=== PATIENT | female | born 1950 | race Two or more races ===

== ENCOUNTER → 2024-08-17 | Outpatient (CLI) | payer OTHER, MEDICAID, SELFPAY ==
--- NOTE | 2024-08-17 09:30 | XR_ITS ---
Examination: MRI abdomen with intravenous contrast. MRI abdomen without intravenous contrast. Date and time of exam: August 17, 2024 1013 hours Comparison 04/18/2024 INDICATIONS: Diagnosis renal cell cancer, right nephrectomy November 2022 restaging Technique: Multiple axial, sagittal and coronal sections of the abdomen obtained. Transverse images, TR 6020, TE 107. T1 weighted transverse images, TR 582, TE 9.5. T2-weighted sagittal images, TR 4000, TE 105. T2-weighted sagittal images, TR 4000, TE 5. Coronal images, TR 4210, TE 107. Axial and coronal images are obtained post 5 cc intravenous injection, gadolinium. Findings: No enhancing liver lesion Spleen is not enlarged Absent right kidney Stable small left adrenal nodule No enhancing liver splenic or left renal lesion No enhancing recurrent soft tissue tumor in the right renal fossa No interval lymphadenopathy No ascites IMPRESSION: Study is limited by the patient's size Absent right kidney No interval metastatic disease noted
== END | disposition home or self-care (01) ==
PROVIDERS: PCP Physician Assistant; Referring Provider Internal Medicine Hematology & Oncology; Visit Provider Internal Medicine Hematology & Oncology
DX: C64.1 Malignant neoplasm of right kidney, except renal pelvis (principal); Z90.5 Acquired absence of kidney
CPT/HCPCS: 74183; A9579

== ENCOUNTER 2024-12-28 15:20 | Outpatient (RCR) | payer OTHER, MEDICAID, SELFPAY ==
--- NOTE | 2024-12-29 09:48 | CTCFLWUP_ITS ---
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 The patient presents for follow-up of their cancer treatment and management of associated health conditions. The patient's renal cancer was diagnosed in 2022, with a T3 tumor that was completely removed during a right nephrectomy. Lymph nodes were negative at the time of surgery. A stable 14 millimeter renal nodule was noted in March 2024, and the patient was last seen by Dr. Velásquez in the same month. No immunotherapy has been administered. The patient is scheduled for a Marianela test, a genetic blood test to detect early cancer recurrence. Since the last visit, the patient's blood pressure has been rising, with recent readings of 138/85, 142/88, and 143/93, the highest recorded recently. The patient's weight increased to 347 pounds but has since decreased to 307 pounds with the use of Mounjaro, which has been helpful for weight loss, diabetes management, and blood pressure control. The patient reports retaining water. The patient is currently taking diltiazem for heart issues. They are being cared for by their son, who serves as the primary caregiver among five children. The patient's primary care provider is a nurse practitioner, Dr. Jay. Medications and Supplements - Asparlas - Diltiazem - For heart issues - Mounjaro - Helps with weight loss, diabetes, and blood pressure - Patient's weight decreased from 347 pounds to 307 pounds Review of Systems General: Positive for weight gain, water retention. Cardiovascular: Positive for elevated blood pressure. Objective: Vital Signs - Blood Pressure: 143/93 mmHg - Weight: 307 pounds Laboratory, Imaging, and Diagnostic Test Results - CT scan (March 2024): Stable 14 millimeter renal nodule - Previous results: - Pathology (2022): Clear cell renal cell cancer of the right kidney, lymph nodes negative, tumor stage T3 ONCOLOGY HISTORY: DIAGNOSIS: PT3a, pN0, clear-cell renal cell carcinoma of the right kidney. Status post right nephrectomy (12/19/2022) 14 mm left intrarenal nodule (MRI 12/11/2023), stable (MRI 04/18/2024) Obesity Type 2 diabetes REASON FOR TODAY?S VISIT: This is office follow-up visit. Ms. Lay is here at [facility] accompanied by her son. Ms. Lay is clinically doing well. Denies any new complaints. Denies any cough, chest pain, abdominal pain or leg cramps. Recently she had repeat MRI of the abdomen which showed stable left adrenal nodule as documented below. DATE OF DIAGNOSIS: STAGE/TNM: TREATMENT HISTORY: Care?Plan Start?Date Cycle Day Intent HISTORY OF PRESENT ILLNESS: With following oncology history. 12/19/2022: Ms. Lay had robotic right radical nephrectomy, robotic right radical adrenalectomy. 08/31/2023: CT scan of the chest and abdomen with IV contrast 11/09/2023: PET/CT scan done 12/11/2023: MRI of the abdomen with and without contrast? 01/11/2024: CT of the abdomen without contrast for possible biopsy 04/18/2024: MRI of the abdomen with and without contrast OTHER MEDICAL HISTORY/CONDITIONS: Right kidney clear cell cancer - 12/19/22 Diabetes HTN Asthma Arthritis Obesity T and A - age 12 Left oophorectomy Tubal ligation Bilateral cataract surgery Right radical nephrectomy - 12/19/22 FAMILY HISTORY: Cancer History:?Denies family history cancer Patient?denies?family?cancer?history. 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 Tobacco?Use:?Denies ETOH?Use:?Socailly?-?rarely Drug?Note:?Denies Social?History?Note:?Lives?with?sons GM VIDEO HISTORY: Menarche?-?Age:?13 Menopause:?Age?50's :?7 Live?Births:?5 Age?1st?:?19 Gynecological?Note:?2?miscarriages MEDICATIONS: 1. atorvastatin - 20 mg 1 tab Daily 2. benzonatate - 100 mg 1 Capsule Three times a day 3. cyclobenzaprine - 5 mg 2 tab Daily 4. dilTIAZem HCl - 60 mg 1 tab Twice a Day 5. ferrous sulfate - 325 mg (65 mg iron) 1 tab As directed 6. ekpya-[id number]-1-glo-nxc-icnqgb - 614-26-37-50 mg 1 Capsule Daily 7. Linzess - 290 mcg 1 Capsule Daily 8. losartan - 25 mg 1 tab Daily 9. meloxicam - 15 mg 1 tab Daily 10. montelukast - 10 mg 1 tab Daily 11. Mounjaro - 2.5 mg/0.5 mL 1 Weekly 12. omeprazole - 20 mg 1 Daily 13. Trelegy Ellipta - 100-62.5-25 mcg Daily 14. Vitamin D2 - 1,250 mcg (50,000 unit) 1 Capsule As directed Medications Last Reconciled by Kaycee Gay MA on 12/28/2024 ALLERGIES: Penicillins REVIEW OF SYSTEMS: A complete 14-point review of systems was performed and is negative except as noted in interval history. PHYSICAL EXAMINATION: VITAL SIGNS: Temperature?98.2, B/P?172/91, Oxygen?Saturation?98% Weight?307?lbs PAIN: 0 - No pain ECOG Performance Status: 0 - Asymptomatic and fully active GENERAL APPEARANCE: Appears well, in no apparent distress, appropriately interactive. HEENT: Normocephalic, no temporal wasting, normal conjunctiva, no scleral icterus, normal hearing, lips without lesions, neck normal range of motion. CARDIOVASCULAR: Not assessed. PULMONARY: Normal respiratory effort, no respiratory distress or use of accessory muscles, speaking in full sentences, no tachypnea. EXTREMITIES: No pedal edema or cyanosis. SKIN: Normal skin appearance. NEUROLOGIC: Alert and oriented x4. PSHYCHIATRIC: Appropriate affect, mood normal, behavior normal, intact thought and speech. LABORATORY DATA: I have personally reviewed and interpreted each of the patient?s relevant lab tests, abnormal findings are below: Date 08/31/23 04/18/24 ??WHITE?BLOOD?COUNT?(Thou/mm3) 8.5 7.7 ??RED?BLOOD?COUNT?(Miln/mm3) 4.07 4.09 ??HEMOGLOBIN?(gm/dl) 9.9?L 11.8?L ??HEMATOCRIT?(%) 34.6?L 38.8 ??PLATELET?COUNT?(Thou/mm3) 411 335 ??NEUTROPHILS?%,?AUTO?(%) 66 66 ??LYMPH?%,?AUTO?(%) 20 23 ??NEUTROPHILS,?AUTO?(Thou/mm3) 5.6 5.1 ??GLUCOSE,RANDOM?(mg/dL) 94 99 ??BLOOD?UREA?NITROGEN?(mg/dL) 19 17 ??CREATININE?(mg/dL) 1.10 1.00 ??SODIUM?(mmol/L) 141 140 ??POTASSIUM?(mmol/L) 4.4 4.3 ??CHLORIDE?(mmol/L) 108?H 110?H ??CrCl?(CandG)?(ml/min) 68.05 71.20 ??AST/SGOT?(Unit/L) 14 12 ??ALT/SGPT?(Unit/L) 9?L <?7?L ??ALKALINE?PHOSPHATASE?(Unit/L) 139?H 101 ??BILIRUBIN,?TOTAL?(mg/dL) 0.3 0.3 ??PROTEIN?TOTAL?(gm/dl) 7.3 7.0 ??ALBUMIN,?SERUM?(gm/dl) 4.3 4.0 ??GLOBULIN?(gm/dl) 3.0 3.0 ??ALBUMIN/GLOBULIN?RATIO 1.4 1.3 ??CALCIUM,?SERUM?(mg/dL) 10.4 10.0 ??CALCIUM?SERUM?(CORRECTED)?(mg/dL) 10.4?H 10.0 ASSESSMENT/PLAN: Assessment and Plan: Cyndie Tineo, status post right kidney nephrectomy for clear cell renal cell carcinoma in 2022, presenting for follow-up with stable renal nodule and rising blood pressure. 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 Pathology showed T3 tumor with negative lymph nodes, indicating all cancer was removed. No immunotherapy was administered. Follow-up imaging in March 2024 revealed a stable 14 mm renal nodule. Patient was last seen by Dr. Velásquez in March 2024. Given the stable nature of the nodule and negative lymph nodes at time of surgery, current risk of recurrence appears low. Plan: - Order Marianela test (genetic blood test) for early detection of cancer recurrence - Continue surveillance for potential metastases, particularly to brain and lungs - Monitor stable growth on adrenal glands, currently assessed as unlikely to be cancerous - Educate patient on kidney cancer metastasis patterns and importance of follow-up Stable left adrenal noduLe on MRI of the abdomen done on 04/18/2024. left adrenal nodule was not biopsied due to significant lung between the mass in the posterior chest abdominal wall. MRI of the abdomen (12/11/2023) showed a 14 mm left adrenal nodule as documented above suspicious for adrenal metastasis. History of right kidney clear-cell renal cell carcinoma, status post robotic right nephro Hypertension Assessment: Patient's blood pressure has been rising, with recent readings of 138/85, 142/88, and 143/93. The most recent reading is the highest recorded. Current goal is to achieve blood pressure control of 130/80, especially important given the patient's history of nephrectomy. Patient is currently on diltiazem for cardiac issues, which may not be optimal for blood pressure management. Plan: - Recommend transition from diltiazem to losartan for better blood pressure control - Advise patient to avoid salty foods and increase water intake - Refer patient to an MD (instead of current nurse practitioner) for improved blood pressure management - Monitor blood pressure closely at follow-up visits Obesity Assessment: Patient's weight increased to 347 pounds but has since decreased to 307 pounds with the use of Mounjaro. The medication is helping with weight loss, diabetes management, and blood pressure control. Patient is retaining water, which may be contributing to weight fluctuations. Plan: - Continue Mounjaro for weight management, diabetes control, and blood pressure regulation - Monitor weight at follow-up visits - Assess for fluid retention and consider interventions if persistent ORDERS: Order # Description [id number] Comprehensive Metabolic Panel - 12 + CBC with Auto Diff [id number] MD Follow Up 2 Months RETURN TO CLINIC: BILLING AND COMPLIANCE: I reviewed external records from providers outside my specialty as summarized above. I spent a total of 50 minutes on this patient?s care on the day of their visit excluding time spent related to any billed procedures. This time includes time spent with the patient as well as time spent documenting in the medical record, reviewing patients records and tests, obtaining history, placing orders, communicating with other healthcare professionals, counseling the patient, family or caregiver, and/or care coordination for the diagnoses above. Electronically Signed by: Ignacio Newberry MD T: 9:45 AM CC: PCP: Alexy Suh Referring: Alexy Suh This document was completed utilizing speech recognition software. Grammatical errors, random word insertions, pronoun errors, and incomplete sentences are an occasional consequence of this system due to software limitations, ambient noise, and hardware issues. Any formal questions or concerns about the content, text or information contained within the body of this dictation should be directly addressed to the provider for clarification.
== END 2025-01-23 23:59 | disposition home or self-care (01) ==
LOC: SCTC 15:20
PROVIDERS: PCP Physician Assistant; Referring Provider Physician Assistant; Visit Provider Internal Medicine Hematology & Oncology
DX: C64.1 Malignant neoplasm of right kidney, except renal pelvis (principal); Z90.5 Acquired absence of kidney; E27.8 Other specified disorders of adrenal gland; I10 Essential (primary) hypertension; E66.9 Obesity, unspecified; Z68.43 Body mass index [BMI] 50.0-59.9, adult
CPT/HCPCS: 99212; G0463

== ENCOUNTER 2025-02-14 16:23 | Emergency (ER) | payer OTHER, MEDICAID, SELFPAY ==
[2025-02-14 16:25] VITALS: BMI 54.3
[2025-02-14 17:01] VITALS: BP 145/81; PULSE 73; RESP 18; TEMP 36.7; O2SAT 95
--- NOTE | 2025-02-14 17:05 | XR_ITS ---
Examination: CT abdomen and pelvis without contrast. Coronal 3-D reconstructions. Sagittal 2-D reconstructions. Date and time of exam:February 14, 2025 1733 hours COMPARISON: PET CT scan November 09, 2023 INDICATIONS: Left flank pain beginning 6 days ago, history renal cell carcinoma posttreatment, CTDI: vol (mGy): 24 DLP: (mGycm): 1608 Technique: Axial images of the abdomen have been obtained, 3 mm slice thickness Intravenous contrast material has not been administered. Low dose protocols were performed. One or more of the following dose reduction techniques were used; automated exposure control, adjustment of the mA and/or KV according to patient size, use of iterative reconstruction technique. Findings: Focal liver or splenic lesion Absent gallbladder No pancreatic mass Stable 21 mm left adrenal nodule No left hydronephrosis renal or ureteral calculi Absent right kidney Normal appendix 6 cm umbilical hernia chest which contains partly incarcerated fat No bowel obstruction Atrophic uterus No bladder mass IMPRESSION: Stable 21 mm left adrenal nodule No left hydronephrosis or renal calculi or ureteral calculi Absent right kidney No findings of metastatic disease
--- NOTE | 2025-02-14 17:06 | PD.EDRME ---
Rapid Medical Screening Exam RME Arrival date/time: 02/14/25 16:23 74-year-old female presents emergency department for complaint of generalized abdominal pain Chief Complaint: Back Pain/Injury Vital signs: Vital Signs Temperature 98.0 F 02/14/25 17:01 Pulse Rate 73 02/14/25 17:01 Respiratory Rate 18 02/14/25 17:01 Blood Pressure 145/81 H 02/14/25 17:01 Pulse Oximetry (%) 95 02/14/25 17:01 Oxygen Delivery Method Room Air 02/14/25 17:01
[2025-02-14 17:33] LABS: Basophils # (Auto) 0.0 Thou/mm3 (0.0-0.2); Basophils % (Auto) 0 % (0-2.5); Eosinophils # (Auto) 0.2 Thou/mm3 (0.0-0.5); Eosinophils % (Auto) 3 % (0-10); Hematocrit 34.8 % (36.0-46.0); Hemoglobin 10.4 g/dL (12.0-16.0); Immature Granulocytes Auto 0.02 Thou/mm3 (0.00-0.00); Lymphocytes # (Auto) 1.7 Thou/mm3 (1.0-4.8); Lymphocytes % (Auto) 19 % (10-50); Mean Corpuscular HGB Conc 29.9 g/dl (31.0-37.0); Mean Corpuscular Hemoglobin 23.6 pg (25.0-35.0); Mean Corpuscular Volume 79 fL (80-100); Monocytes # (Auto) 0.7 Thou/mm3 (0.0-0.8); Monocytes % (Auto) 8 % (0-12); Neutrophils # (Auto) 6.5 Thou/mm3 (1.8-7.7); Neutrophils % (Auto) 71 % (37-80); Nucleated Red Blood Cell # 0.00 Thou/mm3 (0.00-0.00); Nucleated Red Blood Cell % 0 /100 WBC (0); Platelet Count 342 Thou/mm3 (140-440); RDW Standard Deviation 54.5 fL (36.4-46.3); Red Blood Count 4.40 Miln/mm3 (4.00-5.20); White Blood Count 9.2 Thou/mm3 (3.6-11.0)
[2025-02-14 18:13] LABS: Alanine Aminotransferase < 7 U/L (10-49); Albumin, Serum 4.1 gm/dL (3.4-4.8); Albumin/Globulin Ratio 1.2 (1.2-2.2); Alkaline Phosphatase 154 U/L (46-116); Anion Gap 9 (7-16); Aspartate Amino Transferase 12 U/L (0-34); BUN/Creatinine Ratio 13 Ratio (12-20); Bilirubin,Total 0.4 mg/dL (0.3-1.2); Blood Urea Nitrogen 16 mg/dL (9-23); Calcium 10.1 mg/dL (8.3-10.6); Calcium (Corrected) 10.1 mg/dL (8.5-10.1); Carbon Dioxide 26.7 mMol/L (20.0-31.0); Chloride 106 mMol/L (98-107); Creatinine (Component) 1.2 mg/dL (0.6-1.3); Estimated Creatinine Clearance 56.6 mL/min (>60); Globulin 3.4 gm/dL (2.3-3.5); Glucose 92 mg/dL (74-106); Lipase 22 U/L (12-53); Osmolality,Calculated 284 (275-295); Potassium 4.8 mMol/L (3.4-5.1); Sodium 142 mMol/L (136-145); Total Protein 7.5 gm/dL (5.7-8.2); eGFR 48 See Note
[2025-02-14 19:28] LABS: Collection Type, Urine Clean Catch
[2025-02-14 19:41] LABS: Bacteria,Urine Rare; Bilirubin,Urine Negative (Negative); Blood,Urine Negative (Negative); Clarity,Urine Clear (Clear/Hazy); Color,Urine Colorless (Lt Yel-Yel); Culture Indicated,Urine Not Indicated; Glucose, Urine 3+ (Negative); Ketones,Urine Negative (Negative); Leukocyte Esterase,Urine Negative (Negative); Nitrite,Urine Negative (Negative); PH,Urine 6.5 (5.0-7.0); Protein,Urine Negative (Neg - Trace); RBC,Urine 2 /hpf (0-3); Specific Gravity,Urine 1.011 (1.001-1.035); Squamous Epithelial Cell,Urine 2 /hpf (0-5); Urobilinogen,Urine Negative mg/dL (0.0-1.0); WBC,Urine 1 /hpf (0-5)
--- NOTE | 2025-02-14 21:39 | PD.EDABDPN ---
ED Abdominal Pain RME/HPI General Chief Complaint: Back Pain/Injury Stated complaint: SIDE PAIN AND BACK PAIN X6 DAYS Time seen by provider: 02/14/25 21:16 Arrival date/time: 02/14/25 16:23 74-year-old female is here today with her son. She has a 6-day history of abdominal pain and bilateral flank pain. She has no nausea, vomiting, or diarrhea. She has no dysuria. She denies any fevers. She states she has a history of asthma, hypertension, and diabetes. She has a remote history of renal cell carcinoma and had a nephrectomy in 2022. She has also had a prior cholecystectomy. Source: patient and family Limitations: no limitations RME / HPI RME / HPI narrative: 02/14/25 16:23 74-year-old female presents emergency department for complaint of generalized abdominal pain Related Data Home Medications ?Medication ?Instructions ?Recorded ?Confirmed albuterol sulfate 2.5 mg/3 mL 2.5 mg inhalation Q4H PRN Cough 09/04/22 01/11/24 (0.083 %) solution for nebulization diltiazem HCl 60 mg 60 mg PO BID 09/04/22 01/11/24 capsule,extended release 12 hr meloxicam 15 mg tablet 15 mg PO QDAY 09/04/22 01/11/24 metformin 850 mg tablet 850 mg PO BID 09/04/22 01/11/24 montelukast 10 mg tablet 10 mg PO QDAY 09/04/22 01/11/24 budesonide 0.5 mg/2 mL suspension 0.25 mg inhalation BID 09/19/22 03/16/23 for nebulization krill oil 500 mg capsule 350 mg PO QDAY 09/19/22 01/11/24 benzonatate 100 mg capsule 100 mg PO 3XD 01/11/24 01/11/24 ferrous sulfate 325 mg (65 mg 325 mg PO QDAY 01/11/24 01/11/24 iron) tablet furosemide 20 mg tablet 20 mg PO DAILY 01/11/24 01/11/24 linaclotide 290 mcg capsule 290 mcg PO DAILY 01/11/24 01/11/24 (Linzess) Previous Rx's ?Medication ?Instructions ?Recorded diphenhydramine HCl 25 mg capsule 25 mg PO Q8H PRN allergic symptoms 05/22/23 (Benadryl) #30 caps dicyclomine 20 mg tablet 20 mg PO QID PRN abdominal pain 02/14/25 #14 tabs Allergies Allergy/AdvReac Type Severity Reaction Status Date / Time Penicillins Allergy Severe RASH Verified 02/14/25 16:25 cat dander Allergy Verified 02/14/25 16:25 dog dander Allergy Verified 02/14/25 16:25 pollen extracts Allergy Verified 02/14/25 16:25 Review of Systems Review of Systems Systems Reviewed: All systems reviewed, normal except as documented ED Exam General Limitations: Present no limitations General appearance: Present alert and in no apparent distress Head Head exam: Present atraumatic Eye Eye exam: Present normal appearance, PERRL and EOMI ENT ENT exam: Present normal exam, normal oropharynx and mucous membranes moist Neck Neck exam: Present normal inspection, full ROM and trachea midline Chest Chest inspection: Present normal inspection and symmetric chest wall rise Respiratory Respiratory exam: Present normal lung sounds bilaterally Cardiovascular Cardiovascular exam: Present regular rate, normal rhythm and normal heart sounds Abdominal Exam Abdominal exam: Present soft and normal bowel sounds; Absent distention, tenderness, guarding, rebound or rigidity Extremities Exam Extremities exam: Present normal inspection and full ROM Back Exam Back exam: Present normal inspection and full ROM Neurological Exam Neurological exam: Present alert, oriented X3 and other Psychiatric Psychiatric exam: Present normal affect and normal mood Skin Skin exam: Present warm, dry, intact and normal color Course Quality Measures none Orders Category Date Time Status CT abdomen pelvis wo con Stat Exams 02/14/25 17:05 Completed CBC Stat Lab 02/14/25 17:19 Completed Comprehensive Metabolic Panel Stat Lab 02/14/25 17:19 Completed Lipase Stat Lab 02/14/25 17:19 Completed UA, C/S IF [Urinalysis, C/S if Indicated] Stat Lab 02/14/25 19:18 Completed Vital Signs Vital signs: Vital Signs Temperature 98.0 F 02/14/25 17:01 Pulse Rate 73 02/14/25 17:01 Respiratory Rate 18 02/14/25 17:01 Blood Pressure 145/81 H 02/14/25 17:01 Pulse Oximetry (%) 95 02/14/25 17:01 Oxygen Delivery Method Room Air 02/14/25 17:01 Abdominal Pain MDM MDM Narrative MDM Narrative:: 02/14/25 16:23 74-year-old female is here today with her son. She has a 6-day history of abdominal pain and bilateral flank pain. She has no nausea, vomiting, or diarrhea. She has no dysuria. She denies any fevers. She states she has a history of asthma, hypertension, and diabetes. She has a remote history of renal cell carcinoma and had a nephrectomy in 2022. She has also had a prior cholecystectomy. The history was initially difficult to obtain. After I had introduced myself, the patient send began yelling at me asking me what was wrong . He verbalized discontent with the triage process indicating that had been in the waiting room for quite some time and he had seen people have gotten here after us and were seen before us . This situation was de-escalated and I was able to obtain a history and physical. At one point during our interview, nursing staff stated they needed the wheelchair the patient was using for an emergent case in the waiting room and brought in a chair for the patient to sit down on. Patient and her son verbalized discontent with this and initially declined to provide the wheelchair. They later agreed to transfer into the chair that was set next to her. Her abdomen is soft, there is no appreciated masses, guarding, or tenderness. She has no CVA tenderness. Patient's workup revealed no leukocytosis. She has an anemia with a hemoglobin 10.4 and hematocrit 34.8. Her metabolic panel was unremarkable exception of a elevated alk phos at 154. CT revealed no acute intra-abdominal or pelvic abnormality. Findings discussed with Dr. Miller. No further emergent workup is warranted at this time. Patient will be discharged with a prescription of Bentyl. She agrees to use Tylenol for comfort. She will follow-up with her primary clinic. Return here at anytime for any worsening or emergent changes. Patient data External records reviewed:: None Clinical information provided by:: patient and family Social determinants that could affect healthcare access:: none Patient has the following chronic illnesses:: Asthma, hypertension, diabetes How is presenting disease/condition affected by chronic disease/condition?: uneffected by Evaluation data The following diagnostics were reviewed and interpreted by me:: lab results (No leukocytosis or metabolic derangement) and radiology exam(s) (No acute intra-abdominal or pelvic abnormality) Lab and/or radiology exams considered but not ordered:: n/a Interpretation Summary: Mild anemia Medications / Prescriptions Medications or Prescriptions considered but not ordered:: n/a Medication administrations:: n/a Consultations Consultation(s) initiated? (list below): No Diagnosis Differential diagnosis abdominal pain: abdominal pain, constipation, gastroenteritis and small bowel obstruction Most likely diagnosis given after review of the tests above:: Abdominal cramping Admission Indicated Admission indicated?: not indicated Admission Request Was there a request for admission?: No Disposition Plan Disposition Plan: Discharge Discharge Attestation Discharge Attestation: The patient and all family members were given an opportunity to ask questions and understood the discharge instructions. Discharge instructions specifically effects, indications for sooner follow up or return to the emergency department, and the expected course of current diagnosis. Patient condition: Stable Discharge Plan Plan Patient Disposition: HOME (Self Care) Patient condition on transfer: Stable Prescriptions/Referrals Prescriptions/Med Rec: New dicyclomine 20 mg tablet 20 mg PO QID PRN (Reason: abdominal pain) Qty: 14 0RF No Action meloxicam 15 mg tablet 15 mg PO QDAY metformin 850 mg tablet 850 mg PO BID montelukast 10 mg tablet 10 mg PO QDAY diltiazem HCl 60 mg capsule,extended release 12 hr 60 mg PO BID albuterol sulfate 2.5 mg /3 mL (0.083 %) solution for nebulization 2.5 mg inhalation Q4H PRN (Reason: Cough) budesonide 0.5 mg/2 mL Suspension For Nebulization 0.25 mg INHALATION BID krill oil 500 mg Capsule 350 mg PO QDAY diphenhydramine HCl [Benadryl] 25 mg capsule 25 mg PO Q8H PRN (Reason: allergic symptoms) Qty: 30 0RF benzonatate 100 mg Capsule 100 mg PO 3XD ferrous sulfate 325 mg (65 mg iron) Tablet 325 mg PO QDAY furosemide 20 mg Tablet 20 mg PO DAILY Linzess 290 mcg Capsule 290 mcg PO DAILY Referrals: Amanda Turner MD [Primary Care Provider] - In 1 week Problem List Clinical Impression: Abdominal pain Patient/Caregiver Discharge Instructions Education Materials: Abdominal Pain Additional Instructions: - Continue taking her Tylenol as needed. - You will be prescribed a prescription of Bentyl to also help with your pain. - Please follow-up with your primary doctor within the next 1 to 2 weeks. - Return to the emergency room at anytime for any worsening or emergent changes. Print Language: Moroccan Stand Alone Forms: [employer] Patient Portal Info Letter
[2025-02-14 21:51] VITALS: BP 145/62; PULSE 18; RESP 19; TEMP 37.1; O2SAT 99
== END 2025-02-14 21:53 | disposition home or self-care (01) ==
PROVIDERS: Nurse Practitioner Primary Care; Emergency Provider Emergency Medicine; PCP Internal Medicine
DX: R10.9 Unspecified abdominal pain (principal); E27.8 Other specified disorders of adrenal gland; Z90.49 Acquired absence of other specified parts of digestive tract
CPT/HCPCS: 36415; 74176; 80053; 81001; 83690; 85025; 99283

== ENCOUNTER 2025-02-16 07:37 | Outpatient (RCR) | payer OTHER, MEDICAID, SELFPAY | END 2025-02-23 23:59 | disposition home or self-care (01) | LOC: SCTC 07:37 | PROVIDERS: PCP Internal Medicine; Referring Provider Physician Assistant; Visit Provider Internal Medicine Hematology & Oncology | DX: Z85.528 Personal history of other malignant neoplasm of kidney (principal); Z90.5 Acquired absence of kidney; I10 Essential (primary) hypertension; E66.9 Obesity, unspecified; Z68.44 Body mass index [BMI] 60.0-69.9, adult; E27.8 Other specified disorders of adrenal gland | CPT/HCPCS: 36415 ==

== ENCOUNTER 2025-02-28 14:53 | Outpatient (RCR) | payer OTHER, MEDICAID, SELFPAY ==
--- NOTE | 2025-03-06 02:19 | CTCFLWUP_ITS ---
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 The patient presents for follow-up of their cancer treatment and management of associated health conditions. The patient's renal cancer was diagnosed in 2022, with a T3 tumor that was completely removed during a right nephrectomy. Lymph nodes were negative at the time of surgery. A stable 14 millimeter renal nodule was noted in March 2024, and the patient was last seen by Dr. Velásquez in the same month. No immunotherapy has been administered. The patient is scheduled for a Marianela test, a genetic blood test to detect early cancer recurrence. Since the last visit, the patient's blood pressure has been rising, with recent readings of 138/85, 142/88, and 143/93, the highest recorded recently. The patient's weight increased to 347 pounds but has since decreased to 307 pounds with the use of Mounjaro, which has been helpful for weight loss, diabetes management, and blood pressure control. The patient reports retaining water. The patient is currently taking diltiazem for heart issues. They are being cared for by their son, who serves as the primary caregiver among five children. The patient's primary care provider is a nurse practitioner, Dr. Jay. Medications and Supplements - Asparlas - Diltiazem - For heart issues - Mounjaro - Helps with weight loss, diabetes, and blood pressure - Patient's weight decreased from 347 pounds to 307 pounds Review of Systems General: Positive for weight gain, water retention. Cardiovascular: Positive for elevated blood pressure. Objective: Vital Signs - Blood Pressure: 143/93 mmHg - Weight: 307 pounds Laboratory, Imaging, and Diagnostic Test Results - CT scan (March 2024): Stable 14 millimeter renal nodule - Previous results: - Pathology (2022): Clear cell renal cell cancer of the right kidney, lymph nodes negative, tumor stage T3 ONCOLOGY HISTORY:?[facility] Hx? DIAGNOSIS: PT3a, pN0, clear-cell renal cell carcinoma of the right kidney. Status post right nephrectomy (12/19/2022) 14 mm left intrarenal nodule (MRI 12/11/2023), stable (MRI 04/18/2024) Obesity Type 2 diabetes REASON FOR TODAY?S VISIT: This is office follow-up visit. Ms. Lay is here at [facility] accompanied by her son. Ms. Lay is clinically doing well. Denies any new complaints. Denies any cough, chest pain, abdominal pain or leg cramps. Recently she had repeat MRI of the abdomen which showed stable left adrenal nodule as documented below. DATE OF DIAGNOSIS: STAGE/TNM: TREATMENT HISTORY: Care?Plan Start?Date Cycle Day Intent HISTORY OF PRESENT ILLNESS: With following oncology history. 12/19/2022: Ms. Lay had robotic right radical nephrectomy, robotic right radical adrenalectomy. 08/31/2023: CT scan of the chest and abdomen with IV contrast 11/09/2023: PET/CT scan done 12/11/2023: MRI of the abdomen with and without contrast? 01/11/2024: CT of the abdomen without contrast for possible biopsy 04/18/2024: MRI of the abdomen with and without contrast OTHER MEDICAL HISTORY/CONDITIONS: Right kidney clear cell cancer - 12/19/22 Diabetes HTN Asthma Arthritis Obesity T and A - age 12 Left oophorectomy Tubal ligation Bilateral cataract surgery Right radical nephrectomy - 12/19/22 FAMILY HISTORY: Cancer History:?Denies family history cancer Patient?denies?family?cancer?history. 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 Tobacco?Use:?Denies ETOH?Use:?Socailly?-?rarely Drug?Note:?Denies Social?History?Note:?Lives?with?sons [employer] HISTORY: Menarche?-?Age:?13 Menopause:?Age?50's :?7 Live?Births:?5 Age?1st?:?19 Gynecological?Note:?2?miscarriages MEDICATIONS: 1. atorvastatin - 20 mg 1 tab Daily 2. benzonatate - 100 mg 1 Capsule Three times a day 3. cyclobenzaprine - 5 mg 2 tab Daily 4. dilTIAZem HCl - 60 mg 1 tab Twice a Day 5. ferrous sulfate - 325 mg (65 mg iron) 1 tab As directed 6. tekgo-[id number]-rzi-tyferd - 419-82-81-50 mg 1 Capsule Daily 7. Linzess - 290 mcg 1 Capsule Daily 8. losartan - 25 mg 1 tab Daily 9. meloxicam - 15 mg 1 tab Daily 10. montelukast - 10 mg 1 tab Daily 11. Mounjaro - 2.5 mg/0.5 mL 1 Weekly 12. omeprazole - 20 mg 1 Daily 13. Trelegy Ellipta - 100-62.5-25 mcg Daily 14. Vitamin D2 - 1,250 mcg (50,000 unit) 1 Capsule As directed?Pal[facility]ra Meds? Medications Last Reconciled by Tayler Patino MD on 02/28/2025 ALLERGIES: Penicillins REVIEW OF SYSTEMS: A complete 14-point review of systems was performed and is negative except as noted in interval history. PHYSICAL EXAMINATION:?[facility] PE? VITAL SIGNS: Temperature?98, B/P?151/82, Oxygen?Saturation?93% PAIN: 2 - Mild pain GENERAL APPEARANCE: Appears well, in no apparent distress, appropriately interactive. HEENT: Normocephalic, no temporal wasting, normal conjunctiva, no scleral icterus, normal hearing, lips without lesions, neck normal range of motion. CARDIOVASCULAR: Not assessed. PULMONARY: Normal respiratory effort, no respiratory distress or use of accessory muscles, speaking in full sentences, no tachypnea. EXTREMITIES: No pedal edema or cyanosis. SKIN: Normal skin appearance. NEUROLOGIC: Alert and oriented x4. PSHYCHIATRIC: Appropriate affect, mood normal, behavior normal, intact thought and speech. LABORATORY DATA: I have personally reviewed and interpreted each of the patient?s relevant lab tests, abnormal findings are below: Date 04/18/24 02/14/25 ??WHITE?BLOOD?COUNT?(Thou/mm3) 7.7 9.2 ??RED?BLOOD?COUNT?(Miln/mm3) 4.09 4.40 ??HEMOGLOBIN?(gm/dl) 11.8?L 10.4?L ??HEMATOCRIT?(%) 38.8 34.8?L ??PLATELET?COUNT?(Thou/mm3) 335 342 ??NEUTROPHILS?%,?AUTO?(%) 66 71 ??LYMPH?%,?AUTO?(%) 23 19 ??NEUTROPHILS,?AUTO?(Thou/mm3) 5.1 6.5 ??GLUCOSE,RANDOM?(mg/dL) 99 92 ??BLOOD?UREA?NITROGEN?(mg/dL) 17 16 ??CREATININE?(mg/dL) 1.00 1.20 ??SODIUM?(mmol/L) 140 142 ??POTASSIUM?(mmol/L) 4.3 4.8 ??CHLORIDE?(mmol/L) 110?H 106 ??CrCl?(CandG)?(ml/min) 71.20 57.24 ??AST/SGOT?(Unit/L) 12 12 ??ALT/SGPT?(Unit/L) <?7?L <?7?L ??ALKALINE?PHOSPHATASE?(Unit/L) 101 154?H ??BILIRUBIN,?TOTAL?(mg/dL) 0.3 0.4 ??PROTEIN?TOTAL?(gm/dl) 7.0 7.5 ??ALBUMIN,?SERUM?(gm/dl) 4.0 4.1 ??GLOBULIN?(gm/dl) 3.0 3.4 ??ALBUMIN/GLOBULIN?RATIO 1.3 1.2 ??CALCIUM,?SERUM?(mg/dL) 10.0 10.1 ??CALCIUM?SERUM?(CORRECTED)?(mg/dL) 10.0 10.1 ASSESSMENT/PLAN:?Sharmila Newberry Assessment/Plan? Assessment and Plan: Cyndie Tineo, status post right kidney nephrectomy for clear cell renal cell carcinoma in 2022, presenting for follow-up with stable renal nodule and rising blood pressure. 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 Pathology showed T3 tumor with negative lymph nodes, indicating all cancer was removed. No immunotherapy was administered. Follow-up imaging in March 2024 revealed a stable 14 mm renal nodule. Patient was last seen by Dr. Velásquez in March 2024. Given the stable nature of the nodule and negative lymph nodes at time of surgery, current risk of recurrence appears low. Plan: - Order Marianela test (genetic blood test) for early detection of cancer recurrence - Continue surveillance for potential metastases, particularly to brain and lungs - Monitor stable growth on adrenal glands, currently assessed as unlikely to be cancerous - Educate patient on kidney cancer metastasis patterns and importance of follow-up Stable left adrenal noduLe on MRI of the abdomen done on 04/18/2024. left adrenal nodule was not biopsied due to significant lung between the mass in the posterior chest abdominal wall. MRI of the abdomen (12/11/2023) showed a 14 mm left adrenal nodule as documented above suspicious for adrenal metastasis. History of right kidney clear-cell renal cell carcinoma, status post robotic right nephro Hypertension Assessment: Patient's blood pressure has been rising, with recent readings of 138/85, 142/88, and 143/93. The most recent reading is the highest recorded. Current goal is to achieve blood pressure control of 130/80, especially important given the patient's history of nephrectomy. Patient is currently on diltiazem for cardiac issues, which may not be optimal for blood pressure management. Plan: - Recommend transition from diltiazem to losartan for better blood pressure control - Advise patient to avoid salty foods and increase water intake - Refer patient to an MD (instead of current nurse practitioner) for improved blood pressure management - Monitor blood pressure closely at follow-up visits Obesity Assessment: Patient's weight increased to 347 pounds but has since decreased to 307 pounds with the use of Mounjaro. The medication is helping with weight loss, diabetes management, and blood pressure control. Patient is retaining water, which may be contributing to weight fluctuations. Plan: - Continue Mounjaro for weight management, diabetes control, and blood pressure regulation - Monitor weight at follow-up visits - Assess for fluid retention and consider interventions if persistent Anemia Will do nutritional workup ORDERS: Order # Description [id number] Comprehensive Metabolic Panel - 12 + CBC with Auto Diff [id number] MD Follow Up 2 Months [id number] Iron Panel + Ferritin + Vitamin B-12 + Folic Acid; Serum RETURN TO CLINIC: I reviewed the diagnosis, prognosis, and recommended treatment/procedure options with the patient (and/or their legal in store representative), including the potential benefits, risks, side effects and alternative therapies. We also discussed the option of no treatment and the possibility of clinical trial participation, if applicable. All questions were addressed, and they demonstrated understanding. They provided informed consent to proceed with the proposed plan of care. BILLING AND COMPLIANCE: I reviewed external records from providers outside my specialty as summarized above. I spent a total of 50 minutes on this patient?s care on the day of their visit excluding time spent related to any billed procedures. This time includes time spent with the patient as well as time spent documenting in the medical record, reviewing patients records and tests, obtaining history, placing orders, communicating with other healthcare professionals, counseling the patient, family or caregiver, and/or care coordination for the diagnoses above. Electronically Signed by: Ignacio Newberry MD T: 2:17 AM CC: PCP: Amanda Turner Referring: Amanda Turner This document was completed utilizing speech recognition software. Grammatical errors, random word insertions, pronoun errors, and incomplete sentences are an occasional consequence of this system due to software limitations, ambient noise, and hardware issues. Any formal questions or concerns about the content, text or information contained within the body of this dictation should be directly addressed to the provider for clarification.
== END 2025-03-26 23:59 | disposition home or self-care (01) ==
LOC: SCTC 14:53
PROVIDERS: PCP Internal Medicine; Referring Provider Internal Medicine; Visit Provider Internal Medicine Hematology & Oncology
DX: C64.1 Malignant neoplasm of right kidney, except renal pelvis (principal); Z90.5 Acquired absence of kidney; I10 Essential (primary) hypertension; E66.9 Obesity, unspecified; D64.9 Anemia, unspecified; E11.9 Type 2 diabetes mellitus without complications; Z79.85 Long-term (current) use of injectable non-insulin antidiabetic drugs
CPT/HCPCS: 99212; G0463

== ENCOUNTER 2025-03-20 14:10 | Outpatient (AMB) | payer OTHER, MEDICAID, SELFPAY ==
--- NOTE | 2025-03-20 14:27 | PD.RESCLINIC ---
Vital Signs 03/20/25 14:28 Height 1.6 m Height Method Stated Weight 155.129 kg Weight Measurement Method Standing Scale BMI 60.5 BP 111/74 Blood Pressure Source Automatic Cuff Blood Pressure Location Left Upper Arm Position Sitting Respiration 16 Pulse 83 Pulse Source Monitor Temp 97.8 F Temp Source Oral Pulse Oximetry (%) 83 L Oxygen Delivery Method Room Air Allergies/Meds Allergies & Medications Allergies Penicillins Allergy (Severe, Verified 03/20/25 14:28) RASH cat dander Allergy (Verified 03/20/25 14:28) dog dander Allergy (Verified 03/20/25 14:28) pollen extracts Allergy (Verified 03/20/25 14:28) Medication Reconciliation albuterol sulfate 2.5 mg/3 mL (0.083 %) solution for nebulization 2.5 mg inhalation Q4H PRN Cough 09/04/22 [History Confirmed 03/20/25] diltiazem HCl 60 mg capsule,extended release 12 hr 60 mg PO BID 09/04/22 [History Confirmed 03/20/25] metformin 850 mg tablet 850 mg PO BID 09/04/22 [History Confirmed 03/20/25] montelukast 10 mg tablet 10 mg PO QDAY 09/04/22 [History Confirmed 03/20/25] budesonide 0.5 mg/2 mL suspension for nebulization 0.25 mg inhalation BID 09/19/22 [History Confirmed 03/20/25] krill oil 500 mg capsule 350 mg PO QDAY 09/19/22 [History Confirmed 03/20/25] diphenhydramine HCl 25 mg capsule (Benadryl) 25 mg PO Q8H PRN allergic symptoms #30 caps 12/15/22 [Rx Confirmed 03/20/25] linaclotide 290 mcg capsule (Linzess) 290 mcg PO DAILY 01/11/24 [History Confirmed 03/20/25] dicyclomine 20 mg tablet 20 mg PO QID PRN abdominal pain #14 tabs 02/14/25 [Rx Confirmed 03/20/25] atorvastatin 20 mg tablet 20 mg PO QHS 03/20/25 [History] benzonatate 100 mg capsule 100 mg PO TID PRN cough 1 month #90 caps 03/20/25 [Rx] blood pressure kit-extra large #1 ea 03/20/25 [Rx] dapagliflozin propanediol 10 mg tablet (Farxiga) 10 mg PO QDAY 03/20/25 [History] furosemide 20 mg tablet 20 mg PO Q OTHER DAY 03/20/25 [History Confirmed 03/20/25] gabapentin 100 mg capsule 100 mg PO BID 1 month #60 caps 03/20/25 [Rx] omeprazole 20 mg capsule,delayed release 20 mg PO QDAY 03/20/25 [History] omeprazole magnesium 20 mg tablet,delayed release (Prilosec OTC) 20 mg PO QDAY 1 month #30 tabs 03/20/25 [Rx] tirzepatide 2.5 mg/0.5 mL subcutaneous pen injector (Mounjaro) 7.5 mg subcut QWEEK 03/20/25 [History] tirzepatide 7.5 mg/0.5 mL subcutaneous pen injector (Mounjaro) 7.5 mg (0.5 mL) subcut QWEEK 1 month #2 mL 03/20/25 [Rx] MA Intake Visit Data Collection New Patient or Established: Established Patient (seen at [facility] within 3 years) Seen by Clinical Staff ONLY (RN/MA): No Reason for Visit:: ESTABLISH CARE Pain Present Currently: No Pain scale:: 0 Pain Scale Used: She[employer]on[employer] Required: No PCP or OBGYN visit in last 3 months: Yes Hx Now: No Do You Feel Safe at Home: Yes Authorities Contacted: N/A Smoking Status Smoking Status: Never smoker Immunization / Flu Flu Vaccine in the Last 12 Months: Yes Flu Vaccine Exclusion Criteria: No Exclusion Criteria Past Medical History Past Medical History NEUROLOGIC: Negative Neurological Disorders, Cerebrovascular Accident, Transient Ischemic Attacks (TIA), Dementia, Alzheimer's Disease, Parkinson's Disease, Brain Tumor, Meningitis, Seizures, Epilepsy, Multiple Sclerosis, Cerebral Palsy, Amyotrophic Lateral Sclerosis (ALS/Kinsey Gehrig's), Guillain-Mansfield Syndrome, Spina Bifida, Paralysis, Peripheral Neuropathy, Pope's Palsy, Subdural Hematoma, Migraine, Head Trauma, Spinal Cord Injury or Traumatic Brain Injury CARDIAC: Positive Cardiac Disorders, Hypertension and Varicose Veins; Negative Myocardial Infarction, Cardiac Arrhythmia, Atrial Fibrillation, Angina, Heart Murmur, Coronary Artery Disease, Atherosclerotic Heart Disease, Peripheral Vascular Disease, Hypercholesterolemia, Aneurysm, Congestive Heart Failure, Congenital Heart Disease, Valvular Heart Disease, Rheumatic Fever, Cardiomyopathy, Edema, Pericarditis, Cellulitis, Deep Vein Thrombosis or Hypotension RESPIRATORY: Positive Asthma, Bronchitis and Sleep Apnea; Negative Chronic Obstructive Pulmonary Disease (COPD), Emphysema, Pneumonia, Pulmonary Fibrosis, Cystic Fibrosis, Tuberculosis, Pulmonary Embolism or Pulmonary Edema GASTROINTESTINAL: Positive Gastrointestinal Disorders, Gall Bladder Disease, Diverticulosis, Hemorrhoids and Obesity; Negative Hepatitis, Cirrhosis, Pancreatitis, Celiac Disease, Gastrointestinal Bleed, Esophageal Varices, Stauffer's Esophagus, Colitis, Ulcerative Colitis, Diverticulitis, Ulcer, Colorectal Cancer, Irritable Bowel, Crohn's Disease, Obstructive Bowel, Hiatal Hernia or Gastroesophageal Reflux Disease GENITOURINARY: Negative Genitourinary Disorders, Renal Disease, Kidney Stones, Polycystic Kidney Disease, Neurogenic Bladder, Inguinal Hernia, Dialysis, Prostate Cancer or Benign Prostatic Hyperplasia REPRODUCTIVE: Positive Previous Pregnancies (x5); Negative Breast Cancer, Endometriosis, Genital Herpes, Gonorrhea, Pelvic Inflammatory Disease, Syphilis, Testicular Cancer or Uterine Prolapse MUSCULOSKELETAL: Positive Arthritis; Negative Muscular Dystrophy, Myasthenia Gravis, Marfan's Syndrome, Bone Cancer, Rheumatoid Arthritis, Osteoporosis, Degenerative Disk Disease, Gout, Scoliosis, Carpal Tunnel Syndrome, Fibromyalgia, Fractures, Degenerative Joint Disease, Osteomyelitis or Poliovirus ENT: Positive Cataracts; Negative Glaucoma, Blind, Retinal Detachment, Macular Degeneration, Ear Infection, Deafness, Head Trauma or Eye Prosthesis ENDOCRINE: Positive Endocrine Disorders and Diabetes Mellitus Type 2; Negative Diabetes Mellitus Type 1, Hypoglycemia, [place]'s Syndrome, Jason's Disease, Hyperthyroidism, Hypothyroidism, Parathyroid Disease, Pituitary Disease, Systemic Lupus Erythematosus, Syndrome of Inappropriate Antidiuretic Hormone (SIADH), Adrenal Disease or Graves' Disease HEMATOLOGIC: Negative Blood Disorders, Anemia, Leukemia, Hemophilia, Thalassemia, Sickle Cell Disease or Clotting Problems PSYCHO/SOCIAL: Negative Psychiatric Problems, Schizophrenia, Recreational Drug Use, Bipolar Disorder, Depression, Anxiety, Behavior Problems, Self-Mutilation, Attention Deficit Disorder, Attention Deficit Hyperactivity Disorder, Depression, Post Traumatic Stress Disorder or Eating Disorder OTHER HISTORY: Positive Chicken Pox, Measles and Mumps; Negative Hospitalization, Down Syndrome, Autism, Developmental Delay, Shingles, Falls, Blood Transfusions, Blood Transfusion Reaction, Anesthesia Reactions, Organ Transplant, Chemotherapy, Radiation Therapy, Hyperbaric Therapy, MRSA, VRSA, Vancomycin-Resistant Enterococci, Human Immunodeficiency Virus (HIV), Rubella ([place] Measles), Pertussis, Clostridium Difficile, Cancer, Breast Cancer, Cervical Cancer, Colorectal Cancer, Lung Cancer, Ovarian Cancer, Prostate Cancer or Testicular Cancer Family History FAMILY HISTORY: Positive Family Cardiac Disorders and Family Surgery; Negative Family Psychiatric Problems, Family Respiratory Disorders, Family Gastrointestinal Problems, Family Cancer or Family Anesthesia Reaction Surgical History SURGICAL: Positive Eye Surgery, Tonsillectomy, Abdominal Surgery, Nephrectomy (right nephrectomy 11/29/2022) and Tubal Ligation; Negative Cardiac Surgery, Open Heart Surgery, Coronary Artery Bypass Graft, Valve Replacement, Vascular Surgery, Coronary Stent, Cardiac Catheterization, Pacemaker, Angiogram, Auto Implanted Cardiovert Defib, Carotid Endarterectomy, Endocrine Surgery, Thyroidectomy, Ear Surgery, Tympanostomy Tube, Nose Surgery, Oral Surgery, Adenoidectomy, Cochlear Implant, Corneal Transplant, Throat Surgery, Tracheostomy, Gastric Bypass Surgery, Gastrostomy, Bowel Surgery, Transurethral Resection, Joint Replacement, Amputation, Open Reduction Internal Fixation, Arthroscopy, Neurologic Surgery, Brain Shunt, Mastectomy, Lumpectomy, Hysterectomy, Section, Vasectomy or Organ Transplant Social History SMOKING STATUS: Smoking status: Never smoker SECOND HAND EXPOSURE: second hand exposure: No ALCOHOL: Alcohol Intake: Never HOUSING: Housing: [facility] Patient Portal Questionaires PHQ-9 PHQ-2 Over the last 2 weeks, how often have you been bothered by any of the following problems? 1. Little interest or pleasure in doing things: not at all 2. Feeling down, depressed, or hopeless: not at all Total score: 0 PHQ-9 3. Trouble falling or staying asleep, or sleeping too much: Not at all 4. Feeling tired or having little energy: Not at all 5. Poor appetite or overeating: Not at all 6. Feeling bad about yourself - or that you are a failure or have let yourself or your family down: Not at all 7. Trouble concentrating on things, such as reading the newspaper or watching television: Not at all 8. Moving or speaking so slowly that other people could have noticed? - Or the opposite - being so fidgety or restless that you have been moving around a lot more than usual: not at all 9. Thoughts that you would be better off or of hurting yourself in some way: Not at all Total score: 0 Source: Developed by Drs. Сергей Fishman, Dulce Guillen, Lam Moyer and colleagues, with an educational sanjuanita from [employer]. Depression screen completed yes Social History Living Situation History Lives With: Family Housing: House Tobacco History Smoking Status: Never smoker Second Hand Smoke Exposure: No Alcohol History Alcohol Intake: Never Domestic Abuse History Do You Feel Safe at Home: Yes Review of Systems Report any current symptoms Only answer those that you have currently: Past Medical History Past Medical History Have you ever been diagnosed with any of the following: Neurological Problems Cerebrovascular Accident (CVA): No Transient Ischemic Attacks (TIA): No Dementia: No Alzheimer's Disease: No Parkinson's Disease: No Brain Tumor: No Meningitis: No Seizures: No Epilepsy: No Multiple Sclerosis: No Cerebral Palsy: No Amyotrophic Lateral Sclerosis (ALS/Kinsey Gehrig's): No Guillain-Mansfield Syndrome: No Spina Bifida: No Paralysis: No Peripheral Neuropathy: No Pope's Palsy: No Subdural Hematoma: No Migraine: No Head Trauma: No Spinal Cord Injury: No Traumatic Brain Injury: No Cardiology Problems Myocardial Infarction: No Cardiac Arrhythmia: No Atrial Fibrillation: No Angina: No Heart Murmur: No Coronary Artery Disease: No Atherosclerotic Heart Disease: No Peripheral Vascular Disease: No Hypercholesterolemia: No Aneurysm: No Congestive Heart Failure: No Congenital Heart Disease: No Valvular Heart Disease: No Rheumatic Fever: No Cardiomyopathy: No Edema: No Pericarditis: No Cellulitis: No Deep Vein Thrombosis: No Hypertension: Yes Hypotension: No Varicose Veins: Yes Respiratory Problems Chronic Obstructive Pulmonary Disease (COPD): No Asthma: Yes Bronchitis: Yes Emphysema: No Pneumonia: No Pulmonary Fibrosis: No Tuberculosis: No Pulmonary Embolism: No Pulmonary Edema: No Sleep Apnea: Yes Stomache/Intestinal Problems Hepatitis: No Cirrhosis: No Pancreatitis: No Celiac Disease: No Gall Bladder Disease: Yes Gastrointestinal Bleed: No Esophageal Varices: No Stauffer's Esophagus: No Colitis: No Ulcerative Colitis: No Diverticulitis: No Diverticulosis: Yes Ulcer: No Colorectal Cancer: No Irritable Bowel: No Crohn's Disease: No Obstructive Bowel: No Hiatal Hernia: No Hemorrhoids: Yes Gastroesophageal Reflux Disease: No Obesity: Yes Genital/Urinary Problems Renal Disease: No Kidney Stones: No Polycystic Kidney Disease: No Neurogenic Bladder: No Inguinal Hernia: No Dialysis: No Reproductive Problems Breast Cancer: No Endometriosis: No Genital Herpes: No Gonorrhea: No Pelvic Inflammatory Disease: No Previous Pregnancies: Yes (x5) Syphilis: No Uterine Prolapse: No Musculoskeletal Problems Muscular Dystrophy: No Myasthenia Gravis: No Marfan's Syndrome: No Bone Cancer: No Arthritis: Yes Rheumatoid Arthritis: No Osteoporosis: No Degenerative Disk Disease: No Gout: No Scoliosis: No Carpal Tunnel Syndrome: No Fibromyalgia: No Fractures: No Degenerative Joint Disease: No Osteomyelitis: No Poliovirus: No Head,Eye,Nose,Throat Problems Cataracts: Yes Glaucoma: No Blind: No Retinal Detachment: No Macular Degeneration: No Chronic Ear Infections: No Deafness: No Eye Prosthesis: No Endocrine Problems Diabetes Mellitus Type 1: No Diabetes Mellitus Type 2: Yes Hypoglycemia: No [place]'s Syndrome: No Jason's Disease: No Hyperthyroidism: No Hypothyroidism: No Parathyroid Disease: No Pituitary Disease: No Systemic Lupus Erythematosus: No Syndrome of Inappropriate Antidiuretic Hormone: No Adrenal Disease: No Graves' Disease: No Blood Problems Anemia: No Leukemia: No Hemophilia: No Thalassemia: No Sickle Cell Disease: No Clotting Problems: No Psychologic Problems Schizophrenia: No Recreational Drug Use: No Bipolar Disorder: No Depression: No Anxiety: No Behavior Problems: No Self-Mutilation: No Attention Deficit Disorder: No Attention Deficit Hyperactivity Disorder: No Depression: No Post Traumatic Stress Disorder: No Eating Disorder: No Other Problems Hospitalization: No Down Syndrome: No Autism: No Developmental Delay: No Shingles: No Falls: No Blood Transfusions: No Blood Transfusion Reaction: No Anesthesia Reactions: No Organ Transplant: No Chemotherapy: No Radiation Therapy: No Hyperbaric Therapy: No MRSA: No VRSA: No Vancomycin-Resistant Enterococci: No Human Immunodeficiency Virus (HIV): No Chicken Pox: Yes Measles: Yes Mumps: Yes Rubella ([place] Measles): No Pertussis: No Clostridium Difficile: No Cancer: No Cervical Cancer: No Lung Cancer: No Ovarian Cancer: No Surgical History Carotid Endarterectomy: No Coronary Artery Bypass Graft: No Valve Replacement: No Hysterectomy: No Pacemaker: No Thyroidectomy: No History of Present Illness HPI Narrative Patient is a 74 year old female with past medical history of clear cell renal carcinoma s/p right nephrectomy, hypertension, diabetes, asthma, and morbid obesity who presents to clinic today for blood pressure control. Currently on furosemide 20 mg every other day, losartan 25 mg daily, diltiazem 60 mg ER BID (prescribed by previous CONSTRUCTION PRODUCER), and Farxiga 10 mg daily. BP in office 111/74 today. Oxygen saturation 83% on intake, repeat 92-93% on RA on exam. Hx of asthma, uses Trelegy, uses 2L oxygen nightly, does not need during the day. Reports daytime tiredness however does not want to be referred for sleep study at this time. Reports unable to sleep at night, educated on proper sleep hygiene and encouraged to try melatonin OTC. Patient is currently on Monjaro 5mg, started 1 month ago. Has not lost any weight. Encouraged exercise as tolerated. Patient has trouble walking due to right side sciatica versus meralgia parasthesia, started on gabapentin 100 mg BID. Uses walker but requested wheelchair for gait dysfunction secondary to pain. Will increase Mounjaro from 5 to 7.5mg per patient request. Denies nausea, vomiting, and constipation (Linzess daily). Denies history of tobacco, alcohol, and drug use. Review of Systems Review of Systems Narrative Review of Systems: Review of Systems General: Denies fevers or chills HEENT: Denies congestion or sore throat Heart: Denies chest pain or palpitations Lungs: Denies shortness of breath or cough Abdomen: Denies diarrhea, nausea, vomiting, constipation, bright red blood per rectum or melena Genitourinary: Denies frequency, urgency, dysuria, or hematuria Musculoskeletal: Denies joint pain or myalgias Neurology: Intermittent paresthesia and pain of right lateral thigh. Denies any changes in vision, weakness or difficulty speaking Review of systems otherwise negative except what is mentioned above. Objective/Exam Narrative Physical exam: Physical Exam General: Elderly, morbidly obese female, pleasant. Wheelchair bound. Awake and in no acute distress. Conversational and non-toxic appearing. HEENT: Normocephalic, atraumatic, mucous membranes moist. Heart: Regular rate and rhythm, normal S1 and S2, no murmurs. Lungs: Clear to auscultation with no wheezing or crackles. Abdomen: Soft, nondistended, nontender, positive bowel sounds. No guarding or rebound tenderness. Neurologic: Alert and oriented x3, no gross neurological deficit, and patient able to move all 4 extremities. Negative Slump test. Extremities: No lower extremity edema bilaterally. Skin: No rash or ecchymoses. Assessment & Plan Diagnosis / Problem List (1) Hypertension: Status: Acute Qualifiers: Hypertension type: primary hypertension Qualified Code(s): I10 - Essential (primary) hypertension Assessment & Plan: Reason for referral from oncologist Dr. Newberry. Previously managed by CONSTRUCTION PRODUCER Misty, was prescribed diltiazem 60 mg ER BID. Denies history of arrhythmias or cardiac disease. Per patient, also taking Losartan 25 mg daily, furosemide 20 mg every other day, and Farxiga 10mg daily. Discontinued from Kerendia. BP in office today 111/74. Denies UTI symptoms, no lower extremity edema on exam. Of note, patient has history of clear renal cell carcinoma s/p right nephrectomy, possibly exacerbated by history of CKD stage 3a, follows oncologist Dr. Newberry and field support rep Dr. Turner. Has appointment with Dr. Newberry 03/[address] Turner 05/2025. Plan: - Continue Losartan, Lasix every other day, Farxiga, and diltiazem as above - Follow up BNP - Ordered BP cuff, instructed patient to measure and log BP every morning - Instructed patient to bring medications to next appointment (2) Non-insulin dependent diabetes mellitus: Status: Acute Assessment & Plan: Currently on Mounjaro 5mg qweek, prescribed by Dr. Turner. First A1c on record 6.0 on 08/20/23, latest 5.6 on 01/31/25. Reports no weight loss. Will increase dosage. Per review of records, patient was previously on metformin, did not mention today as current medication. Plan: - Increase Mounjaro from 5 to 7.5 mg qweek - Instructed patient to bring medications to next visit (3) Leg paresthesia: Status: Acute Assessment & Plan: Complaining of sharp intermittent right lateral thigh pain, occasionally radiating to right hip. Denies pain in hamstrings. Negative Slump test on exam. Impedes patient's ability to walk, currently using walker but unable to ambulate far due to pain. Has handicap placard. Takes extra strength Tylenol for arthritis. Previously taken meloxicam, was discontinued. Plan: - Prescribed gabapentin 100 mg BID for pain - Recommend taking extra strength Tylenol prior to ambulation/activity - Ordered wheelchair per patient request (4) Neurologic gait dysfunction: Status: Acute Assessment & Plan: Pain impeding ambulation as above. Plan: - DME wheelchair request as above (5) GERD (gastroesophageal reflux disease): Status: Acute Qualifiers: Esophagitis presence: without esophagitis Qualified Code(s): K21.9 - Gastro-esophageal reflux disease without esophagitis Assessment & Plan: History of GERD per patient, likely secondary to morbid obesity and poor eating habits. Plan: - Continue omeprazole 20 mg daily - Educated on proper meal time and post dinner habits (6) Hyperlipidemia: Status: Acute Qualifiers: Hyperlipidemia type: unspecified Qualified Code(s): E78.5 - Hyperlipidemia, unspecified Assessment & Plan: Lipid panel 01/31/25: total cholesterol 119, TG 113, HDL 43, LDL 55, VLDL 21. Plan: - Continue atorvastatin 20 mg QHS - Follow up lipid panel annually Orders: Orders B-Type Natriuretic Peptide Today Kelli Rahman, STUDENT RE Referrals DME Services Kelli Rahman, STUDENT RE R26.9 - Unspecified abnormalities of gait and mobility Additional Assessment #Hx clear renal cell carcinoma s/p right nephrectomy - following oncologist Dr. Newberry. On Asparlos per last note 03/06/25. Note stable 14mm adrenal nodule since 03/2024 on MRI. Marianela genetic test negative. #CKD stage 3a - As above. Cr 1.08 and eGFR 54 on 01/31/25, at baseline. Urine albumin/Cr ratio 12. UA shows 2+ glucose but otherwise unremarkable. Following Dr. Turner, on . #Secondary hyperparathyroidism - likely secondary to above. PTH 66, calcium 10.0. Continue to monitor. #Mild anemia, normocytic - Hgb 10.3, MCV 82 on 01/31/25. Likely secondary to CKD. Patient no longer taking iron. Consider iron panel if continues to drop. Advanced Care Planning Advance care planning discussed with:: patient Office Procedures [facility] Level of Care Nursing/Assessment Patient Status: Established Patient Nursing Assessment/Reassessment: Medication Reconciliation, Update PMH in EMR and Vital Signs Coordination of Care: Complex Care and Chronic Disease 1-5, Consent,records obtained, informed consent, Education Simp Pt/Fam, 1 Ins Authorization, Lab and Imaging orders, Results/Orders obtained and Staff clarify orders Established Patient Charge Established Patient Point Assignment: 120 Established Patient Point Charge: Level 4 (120-155)
[2025-03-20 14:28] VITALS: BP 111/74; PULSE 83; RESP 16; TEMP 36.6; O2SAT 83; BMI 60.5
== END 2025-03-20 15:52 | disposition home or self-care (01) ==
LOC: HODAHC 14:10
PROVIDERS: Supervising Provider Internal Medicine
DX: I12.9 Hypertensive chronic kidney disease with stage 1 through stage 4 chronic kidney disease, or unspecified chronic kidney disease (principal); N18.31 Chronic kidney disease, stage 3a; M79.651 Pain in right thigh; E11.22 Type 2 diabetes mellitus with diabetic chronic kidney disease; Z79.85 Long-term (current) use of injectable non-insulin antidiabetic drugs; K21.9 Gastro-esophageal reflux disease without esophagitis; E78.5 Hyperlipidemia, unspecified; Z85.528 Personal history of other malignant neoplasm of kidney; Z90.5 Acquired absence of kidney; E66.01 Morbid (severe) obesity due to excess calories; Z68.44 Body mass index [BMI] 60.0-69.9, adult; N25.81 Secondary hyperparathyroidism of renal origin; D64.9 Anemia, unspecified
CPT/HCPCS: 99214; G0463

== ENCOUNTER 2025-04-27 18:21 | Emergency (ER) | payer OTHER, SELFPAY ==
[2025-04-27 18:48] VITALS: BP 136/96; PULSE 83; RESP 16; TEMP 36.9; O2SAT 95; BMI 49.6
--- NOTE | 2025-04-27 18:54 | EDRME_ITS ---
Rapid Medical Screening Exam [facility] Arrival date/time: 04/27/25 18:21 74F with history of DM and HTN present to ED with 1 day of R-sided STILES. Patient denies ear pain, rash, vision changes, dizziness, N/V, weakness, AMS, and seizures. Son states she is behaving baseline. Chief Complaint: Headache Vital signs: Vital Signs Temperature 98.4 F 04/27/25 18:48 Pulse Rate 83 04/27/25 18:48 Respiratory Rate 16 04/27/25 18:48 Blood Pressure 136/96 H 04/27/25 18:48 Pulse Oximetry (%) 95 04/27/25 18:48 Oxygen Delivery Method Room Air 04/27/25 18:48
--- NOTE | 2025-04-27 18:54 | XR_ITS ---
Examination: CT brain head without contrast. 2-D sagittal coronal reconstructions Date and time of exam:April 27, 2025, 1907 hrs., Comparison December 29, 2023 Indications: Dizziness with right-sided headache today CTDI: vol (mGy):51.2 DLP: (mGycm):18 Technique: Multiple CT axial sections of the brain have been obtained, 5 mm slice thickness. Contrast has not been administered. 2-D sagittal, coronal reconstructions have been obtained Low dose protocols were performed. One or more of the following dose reduction techniques were used; automated exposure control, adjustment of the mA and/or KV according to patient size, use of iterative reconstruction technique. Findings: No significant ventricular enlargement. Intra-axial or extra-axial hemorrhage density is not seen. No mass effect or midline shift Basal cisterns are not remarkable. Fourth ventricle is midline. Cranial vault intact. The sella turcica appears enlarged, sagittal image 27 with possible erosion of the sellar floor Impression: No acute hemorrhage The sella turcica appears enlarged with possible erosion of the sellar floor, recommend MRI brain follow-up pre and postcontrast
[2025-04-27] MEDS: METOCLOPRAMIDE 5 MG TABLET 10 MG PO (19:16)
--- NOTE | 2025-04-27 22:13 | PD.EDHA ---
ED Headache RME/HPI General Chief Complaint: Headache Stated Complaint: FEELS LIKE ELECTRICITY IN HEAD Time Seen by Provider: 04/27/25 19:03 Arrival date/time: 04/27/25 18:21 Limitations: no limitations RME / HPI RME / HPI Narrative: 04/27/25 18:21 74F with history of DM and HTN present to ED with 1 day of R-sided STILES. Patient denies ear pain, rash, vision changes, dizziness, N/V, weakness, AMS, and seizures. Son states she is behaving baseline. Dr. Fox's Main ED Evaluation: 74yo female with a history of renal cell carcinoma, DM, HTN presents to the ED for a chief complaint of a right-sided headache that woke her up this morning at 0400. Patient has been taking Tylenol throughout the day without any alleviation of her pain. Denies any dizziness, N/V, or any other associated symptoms. Related Data Home Medications ?Medication ?Instructions ?Recorded ?Confirmed albuterol sulfate 2.5 mg/3 mL 2.5 mg inhalation Q4H PRN Cough 09/04/22 03/20/25 (0.083 %) solution for nebulization diltiazem HCl 60 mg 60 mg PO BID 09/04/22 03/20/25 capsule,extended release 12 hr metformin 850 mg tablet 850 mg PO BID 09/04/22 03/20/25 montelukast 10 mg tablet 10 mg PO QDAY 09/04/22 03/20/25 budesonide 0.5 mg/2 mL suspension 0.25 mg inhalation BID 09/19/22 03/20/25 for nebulization krill oil 500 mg capsule 350 mg PO QDAY 09/19/22 03/20/25 linaclotide 290 mcg capsule 290 mcg PO DAILY 01/11/24 03/20/25 (Linzess) atorvastatin 20 mg tablet 20 mg PO QHS 03/20/25 dapagliflozin propanediol 10 mg 10 mg PO QDAY 03/20/25 tablet (Farxiga) furosemide 20 mg tablet 20 mg PO Q OTHER DAY 03/20/25 03/20/25 omeprazole 20 mg capsule,delayed 20 mg PO QDAY 03/20/25 release tirzepatide 2.5 mg/0.5 mL 7.5 mg subcut QWEEK 03/20/25 subcutaneous pen injector (Mounjaro) Previous Rx's ?Medication ?Instructions ?Recorded diphenhydramine HCl 25 mg capsule 25 mg PO Q8H PRN allergic symptoms 12/15/22 (Benadryl) #30 caps dicyclomine 20 mg tablet 20 mg PO QID PRN abdominal pain 02/14/25 #14 tabs benzonatate 100 mg capsule 100 mg PO TID PRN cough 1 month 03/20/25 #90 caps blood pressure kit-extra large #1 ea 03/20/25 gabapentin 100 mg capsule 100 mg PO BID 1 month #60 caps 03/20/25 omeprazole magnesium 20 mg 20 mg PO QDAY 1 month #30 tabs 03/20/25 tablet,delayed release (Prilosec OTC) tirzepatide 7.5 mg/0.5 mL 7.5 mg (0.5 mL) subcut QWEEK 1 03/20/25 subcutaneous pen injector month #2 mL (Mounjaro) Allergies Allergy/AdvReac Type Severity Reaction Status Date / Time Penicillins Allergy Severe RASH Verified 04/27/25 18:24 cat dander Allergy Verified 04/27/25 18:24 dog dander Allergy Verified 04/27/25 18:24 pollen extracts Allergy Verified 04/27/25 18:24 Review of Systems Review of Systems Systems Reviewed: All systems reviewed, normal except as documented ED Exam General Limitations: Present no limitations General appearance: Present alert and in no apparent distress Head Head exam: Present atraumatic Eye Eye exam: Present normal appearance, PERRL, EOMI and other (tracks well) ENT ENT exam: Present normal exam, normal oropharynx and mucous membranes moist Neck Neck exam: Present normal inspection, full ROM and trachea midline Chest Chest inspection: Present normal inspection and symmetric chest wall rise Respiratory Respiratory exam: Present normal lung sounds bilaterally Cardiovascular Cardiovascular exam: Present regular rate, normal rhythm and normal heart sounds Abdominal Exam Abdominal exam: Present soft and normal bowel sounds Extremities Exam Extremities exam: Present normal inspection and full ROM Back Exam Back exam: Present normal inspection and full ROM Neurological Exam Neurological exam: Present alert, oriented X3 and CN II-XII intact; Absent other (facial droop) Psychiatric Psychiatric exam: Present normal affect and normal mood Skin Skin exam: Present warm, dry, intact and normal color Course Quality Measures none Orders Category Date Time Status CT head/brain wo con Stat Exams 04/27/25 18:54 Completed Metoclopramide [Reglan] Med 04/27/25 18:54 Discontinued 10 mg PO X1 ONE Vital Signs Vital signs: Vital Signs Temperature 98.4 F 04/27/25 18:48 Pulse Rate 83 04/27/25 18:48 Respiratory Rate 16 04/27/25 18:48 Blood Pressure 136/96 H 04/27/25 18:48 Pulse Oximetry (%) 95 04/27/25 18:48 Oxygen Delivery Method Room Air 04/27/25 18:48 Headache MDM Narrative MDM Narrative:: Scribe Attestation: 04/27/25 - Paulina Amezquita am scribing for and in the presence of Dr. Fox. Patient data External records reviewed:: [facility] previous records (Per chart review, patient has no relevant previous ED visits.) Clinical information provided by:: patient Social determinants that could affect healthcare access:: none Patient has the following chronic illnesses:: renal cell carcinoma, DM, HTN How is presenting disease/condition affected by chronic disease/condition?: uneffected by Evaluation data The following diagnostics were reviewed and interpreted by me:: radiology exam(s) Lab and/or radiology exams considered but not ordered:: none Interpretation Summary: [facility] Report Signed Patient: MARINA TAVERAS Record#: [id number] Birthdate: 1950 Age/Sex: 74 / F Location: [facility] Attending Dr: Ordering Physician: Chito Ricks PA-C Date of Service: 04/27/25 Procedure(s): CT head/brain wo con Accession Number(s): [id number] cc: Wesley Levy MD; NO PRIMARY/FAMILY,PHYSICIAN; Chito Ricks PA-C~ Examination: CT brain head without contrast. 2-D sagittal coronal reconstructions Date and time of exam:April 27, 2025, 1907 hrs., Comparison December 29, 2023 Indications: Dizziness with right-sided headache today CTDI: vol (mGy):51.2 DLP: (mGycm):18 Technique: Multiple CT axial sections of the brain have been obtained, 5 mm slice thickness. Contrast has not been administered. 2-D sagittal, coronal reconstructions have been obtained Low dose protocols were performed. One or more of the following dose reduction techniques were used; automated exposure control, adjustment of the mA and/or KV according to patient size, use of iterative reconstruction technique. Findings: No significant ventricular enlargement. Intra-axial or extra-axial hemorrhage density is not seen. No mass effect or midline shift Basal cisterns are not remarkable. Fourth ventricle is midline. Cranial vault intact. The sella turcica appears enlarged, sagittal image 27 with possible erosion of the sellar floor Impression: No acute hemorrhage The sella turcica appears enlarged with possible erosion of the sellar floor, recommend MRI brain follow-up pre and postcontrast Dictated By: Wesley Levy MD Signed By: <Electronically signed by Wesley Levy MD in OV> 04/27/25 1919 Medications / Prescriptions Medications or Prescriptions considered but not ordered:: none Medication administrations:: Medication Administration History Discontinued Medications Metoclopramide HCl (Metoclopramide 5 Mg Tablet) 10 mg PO X1 ONE Stop: 04/27/25 18:55 Last Admin: 04/27/25 19:16 Dose: 10 mg Documented By: MF see above Consultations Consultation(s) initiated? (list below): No Diagnosis Differential diagnosis headache: migraine, tension headache, subarachnoid hemorrhage and headache Most likely diagnosis given after review of the tests above:: see clinical impression below Admission Indicated Admission indicated?: not indicated Admission Request Was there a request for admission?: No Disposition Plan Disposition Plan: Discharge Discharge Attestation Discharge Attestation: The patient and all family members were given an opportunity to ask questions and understood the discharge instructions. Discharge instructions specifically effects, indications for sooner follow up or return to the emergency department, and the expected course of current diagnosis. Patient condition: Stable Discharge Plan Plan Patient Disposition: HOME (Self Care) Patient condition on transfer: Stable Prescriptions/Referrals Prescriptions/Med Rec: No Action metformin 850 mg tablet 850 mg PO BID montelukast 10 mg tablet 10 mg PO QDAY diltiazem HCl 60 mg capsule,extended release 12 hr 60 mg PO BID albuterol sulfate 2.5 mg /3 mL (0.083 %) solution for nebulization 2.5 mg inhalation Q4H PRN (Reason: Cough) gabapentin 100 mg capsule 100 mg PO BID 30 Days Qty: 60 2RF Rx Instructions: Take one tablet by mouth twice a day atorvastatin 20 mg tablet 20 mg PO QHS Patient Comments: TAKE 1 TABLET BY MOUTH AT BEDTIME omeprazole 20 mg capsule,delayed release(DR/EC) 20 mg PO QDAY Patient Comments: TAKE 1 CAPSULE BY MOUTH ONCE DAILY DIRECTED dapagliflozin propanediol [Farxiga] 10 mg tablet 10 mg PO QDAY Patient Comments: TAKE 1 TABLET BY MOUTH ONCE DAILY Mounjaro 2.5 mg/0.5 mL pen injector 7.5 mg subcut QWEEK Patient Comments: INJECT 1 SYRINGE SUBCUTANEOUSLY ONCE A WEEK Mounjaro 7.5 mg/0.5 mL pen injector 7.5 mg subcut QWEEK 30 Days Qty: 2 2RF Rx Instructions: Inject subcutaneously as directed benzonatate 100 mg capsule 100 mg PO TID PRN (Reason: cough) 30 Days Qty: 90 2RF Rx Instructions: Take one capsule by mouth three times a day omeprazole magnesium [Prilosec OTC] 20 mg tablet,delayed release (DR/EC) 20 mg PO QDAY 30 Days Qty: 30 2RF Rx Instructions: Take one tablet by mouth every day (DME) blood pressure kit-extra large Kit See Rx Instructions .Route Qty: 1 0RF Rx Instructions: As directed budesonide 0.5 mg/2 mL Suspension For Nebulization 0.25 mg INHALATION BID krill oil 500 mg Capsule 350 mg PO QDAY diphenhydramine HCl [Benadryl] 25 mg capsule 25 mg PO Q8H PRN (Reason: allergic symptoms) Qty: 30 0RF Linzess 290 mcg Capsule 290 mcg PO DAILY furosemide 20 mg tablet 20 mg PO Q OTHER DAY dicyclomine 20 mg tablet 20 mg PO QID PRN (Reason: abdominal pain) Qty: 14 0RF Referrals: No Primary/Family,Physician [Primary Care Provider] - In 1 week Problem List Clinical Impression: Headache Patient/Caregiver Discharge Instructions Education Materials: Self-Care for Headaches Additional Instructions: Your CAT scan does not show that you have a brain bleed. You can continue taking the Tylenol 650 mg 2 or 3 times a day for the next 2 to 3 days. Follow-up with your primary care physician in the next 3 to 5 days. Return to the emergency department for worsening symptoms, you are vomiting, any vision changes, or any other concerns Print Language: Polish Stand Alone Forms: Cammie Award Info., Patient Portal Info Letter
== END 2025-04-27 22:19 | disposition home or self-care (01) ==
PROVIDERS: Emergency Provider Emergency Medicine
DX: R51.9 Headache, unspecified (principal); E11.9 Type 2 diabetes mellitus without complications; I10 Essential (primary) hypertension; Z85.528 Personal history of other malignant neoplasm of kidney
CPT/HCPCS: 70450; 99283; A9270

== ENCOUNTER 2025-05-02 14:43 | Outpatient (RCR) | payer OTHER, SELFPAY ==
--- NOTE | 2025-05-07 23:03 | CTCFLWUP_ITS ---
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 The patient presents for follow-up of their cancer treatment and management of associated health conditions. The patient's renal cancer was diagnosed in 2022, with a T3 tumor that was completely removed during a right nephrectomy. Lymph nodes were negative at the time of surgery. A stable 14 millimeter renal nodule was noted in March 2024, and the patient was last seen by Dr. Velásquez in the same month. No immunotherapy has been administered. The patient is scheduled for a Marianela test, a genetic blood test to detect early cancer recurrence. Since the last visit, the patient's blood pressure has been rising, with recent readings of 138/85, 142/88, and 143/93, the highest recorded recently. The patient's weight increased to 347 pounds but has since decreased to 307 pounds with the use of Mounjaro, which has been helpful for weight loss, diabetes management, and blood pressure control. The patient reports retaining water. The patient is currently taking diltiazem for heart issues. They are being cared for by their son, who serves as the primary caregiver among five children. The patient's primary care provider is a nurse practitioner, Dr. Jay. Medications and Supplements - Asparlas - Diltiazem - For heart issues - Mounjaro - Helps with weight loss, diabetes, and blood pressure - Patient's weight decreased from 347 pounds to 307 pounds Review of Systems General: Positive for weight gain, water retention. Cardiovascular: Positive for elevated blood pressure. Objective: Vital Signs - Blood Pressure: 143/93 mmHg - Weight: 307 pounds Laboratory, Imaging, and Diagnostic Test Results - CT scan (March 2024): Stable 14 millimeter renal nodule - Previous results: - Pathology (2022): Clear cell renal cell cancer of the right kidney, lymph nodes negative, tumor stage T3 ONCOLOGY HISTORY: DIAGNOSIS: PT3a, pN0, clear-cell renal cell carcinoma of the right kidney. Status post right nephrectomy (12/19/2022) 14 mm left intrarenal nodule (MRI 12/11/2023), stable (MRI 04/18/2024) Obesity Type 2 diabetes REASON FOR TODAY?S VISIT: This is office follow-up visit. Ms. Johnson is here at [facility] accompanied by her son. Ms. Johnson is clinically doing well. Denies any new complaints. Denies any cough, chest pain, abdominal pain or leg cramps. Recently she had repeat MRI of the abdomen which showed stable left adrenal nodule as documented below. DATE OF DIAGNOSIS: STAGE/TNM: TREATMENT HISTORY: Care?Plan Start?Date Cycle Day Intent HISTORY OF PRESENT ILLNESS: With following oncology history. 12/19/2022: Ms. Johnson had robotic right radical nephrectomy, robotic right radical adrenalectomy. 08/31/2023: CT scan of the chest and abdomen with IV contrast 11/09/2023: PET/CT scan done 12/11/2023: MRI of the abdomen with and without contrast? 01/11/2024: CT of the abdomen without contrast for possible biopsy 04/18/2024: MRI of the abdomen with and without contrast OTHER MEDICAL HISTORY/CONDITIONS: Right kidney clear cell cancer - 12/19/22 Diabetes HTN Asthma Arthritis Obesity T and A - age 12 Left oophorectomy Tubal ligation Bilateral cataract surgery Right radical nephrectomy - 12/19/22 FAMILY HISTORY: Cancer History:?Denies family history cancer Patient?denies?family?cancer?history. SOCIAL HISTORY: Occupational?History:?Retired - [employer]provider [employer] Education?Level:?Completed 11th grade Marital?Status:? Tobacco?Use:?Denies ETOH?Use:?Socailly?-?rarely Drug?Note:?Denies Social?History?Note:?Lives?with?sons [employer] OPER[employer] HISTORY: Menarche?-?Age:?13 Menopause:?Age?50's :?7 Live?Births:?5 Age?1st?:?19 Gynecological?Note:?2?miscarriages MEDICATIONS: 1. atorvastatin - 20 mg 1 tab Daily 2. benzonatate - 100 mg 1 Capsule Three times a day 3. cyclobenzaprine - 5 mg 2 tab Daily 4. dilTIAZem HCl - 60 mg 1 tab Twice a Day 5. ferrous sulfate - 325 mg (65 mg iron) 1 tab As directed 6. [id number] - 276-02-02-50 mg 1 Capsule Daily 7. Linzess - 290 mcg 1 Capsule Daily 8. losartan - 25 mg 1 tab Daily 9. meloxicam - 15 mg 1 tab Daily 10. montelukast - 10 mg 1 tab Daily 11. Mounjaro - 2.5 mg/0.5 mL 1 Weekly 12. omeprazole - 20 mg 1 Daily 13. Trelegy Ellipta - 100-62.5-25 mcg Daily 14. Vitamin D2 - 1,250 mcg (50,000 unit) 1 Capsule As directed Medications Last Reconciled by Tyaler Patino MD on 05/02/2025 ALLERGIES: Penicillins REVIEW OF SYSTEMS: A complete 14-point review of systems was performed and is negative except as noted in interval history. PHYSICAL EXAMINATION: VITAL SIGNS: Temperature?98.6, B/P?158/88, Oxygen?Saturation?93% PAIN: 0 - No pain ECOG Performance Status: 0 - Asymptomatic and fully active GENERAL APPEARANCE: Appears well, in no apparent distress, appropriately interactive. HEENT: Normocephalic, no temporal wasting, normal conjunctiva, no scleral icterus, normal hearing, lips without lesions, neck normal range of motion. CARDIOVASCULAR: Not assessed. PULMONARY: Normal respiratory effort, no respiratory distress or use of accessory muscles, speaking in full sentences, no tachypnea. EXTREMITIES: No pedal edema or cyanosis. SKIN: Normal skin appearance. NEUROLOGIC: Alert and oriented x4. PSHYCHIATRIC: Appropriate affect, mood normal, behavior normal, intact thought and speech. LABORATORY DATA: I have personally reviewed and interpreted each of the patient?s relevant lab tests, abnormal findings are below: Date 04/18/24 02/14/25 ??WHITE?BLOOD?COUNT?(Thou/mm3) 7.7 9.2 ??RED?BLOOD?COUNT?(Miln/mm3) 4.09 4.40 ??HEMOGLOBIN?(gm/dl) 11.8?L 10.4?L ??HEMATOCRIT?(%) 38.8 34.8?L ??PLATELET?COUNT?(Thou/mm3) 335 342 ??NEUTROPHILS?%,?AUTO?(%) 66 71 ??LYMPH?%,?AUTO?(%) 23 19 ??NEUTROPHILS,?AUTO?(Thou/mm3) 5.1 6.5 ??GLUCOSE,RANDOM?(mg/dL) 99 92 ??BLOOD?UREA?NITROGEN?(mg/dL) 17 16 ??CREATININE?(mg/dL) 1.00 1.20 ??SODIUM?(mmol/L) 140 142 ??POTASSIUM?(mmol/L) 4.3 4.8 ??CHLORIDE?(mmol/L) 110?H 106 ??CrCl?(CandG)?(ml/min) 71.20 57.24 ??AST/SGOT?(Unit/L) 12 12 ??ALT/SGPT?(Unit/L) <?7?L <?7?L ??ALKALINE?PHOSPHATASE?(Unit/L) 101 154?H ??BILIRUBIN,?TOTAL?(mg/dL) 0.3 0.4 ??PROTEIN?TOTAL?(gm/dl) 7.0 7.5 ??ALBUMIN,?SERUM?(gm/dl) 4.0 4.1 ??GLOBULIN?(gm/dl) 3.0 3.4 ??ALBUMIN/GLOBULIN?RATIO 1.3 1.2 ??CALCIUM,?SERUM?(mg/dL) 10.0 10.1 ??CALCIUM?SERUM?(CORRECTED)?(mg/dL) 10.0 10.1 ASSESSMENT/PLAN: Assessment and Plan: Cyndie Tineo, status post right kidney nephrectomy for clear cell renal cell carcinoma in 2022, presenting for follow-up with stable renal nodule and rising blood pressure. 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 Pathology showed T3 tumor with negative lymph nodes, indicating all cancer was removed. No immunotherapy was administered. Follow-up imaging in March 2024 revealed a stable 14 mm renal nodule. Patient was last seen by Dr. Velásquez in March 2024. Given the stable nature of the nodule and negative lymph nodes at time of surgery, current risk of recurrence appears low. Plan: - Order Marianela test (genetic blood test) for early detection of cancer recurrence - Continue surveillance for potential metastases, particularly to brain and lungs - Monitor stable growth on adrenal glands, currently assessed as unlikely to be cancerous - Educate patient on kidney cancer metastasis patterns and importance of follow-up Stable left adrenal noduLe on MRI of the abdomen done on 04/18/2024. left adrenal nodule was not biopsied due to significant lung between the mass in the posterior chest abdominal wall. MRI of the abdomen (12/11/2023) showed a 14 mm left adrenal nodule as documented above suspicious for adrenal metastasis. History of right kidney clear-cell renal cell carcinoma, status post robotic right nephro Patient did not complete any imaging Advised to schedule and complete imaging and return to clinic Hypertension Assessment: Patient's blood pressure has been rising, with recent readings of 138/85, 142/88, and 143/93. The most recent reading is the highest recorded. Current goal is to achieve blood pressure control of 130/80, especially important given the patient's history of nephrectomy. Patient is currently on diltiazem for cardiac issues, which may not be optimal for blood pressure management. Plan: - Recommend transition from diltiazem to losartan for better blood pressure control - Advise patient to avoid salty foods and increase water intake - Refer patient to an MD (instead of current nurse practitioner) for improved blood pressure management - Monitor blood pressure closely at follow-up visits Obesity Assessment: Patient's weight increased to 347 pounds but has since decreased to 307 pounds with the use of Mounjaro. The medication is helping with weight loss, diabetes management, and blood pressure control. Patient is retaining water, which may be contributing to weight fluctuations. Plan: - Continue Mounjaro for weight management, diabetes control, and blood pressure regulation - Monitor weight at follow-up visits - Assess for fluid retention and consider interventions if persistent Anemia Will do nutritional workup RETURN TO CLINIC: I reviewed the diagnosis, prognosis, and recommended treatment/procedure options with the patient (and/or their legal employee representative), including the potential benefits, risks, side effects and alternative therapies. We also discussed the option of no treatment and the possibility of clinical trial participation, if applicable. All questions were addressed, and they demonstrated understanding. They provided informed consent to proceed with the proposed plan of care. BILLING AND COMPLIANCE: I reviewed external records from providers outside my specialty as summarized above. I spent a total of 50 minutes on this patient?s care on the day of their visit excluding time spent related to any billed procedures. This time includes time spent with the patient as well as time spent documenting in the medical record, reviewing patients records and tests, obtaining history, placing orders, communicating with other healthcare professionals, counseling the patient, family or caregiver, and/or care coordination for the diagnoses above. Electronically Signed by: {Object.Sanct_ID*PnP.NameFL@M}, {Object.Sanct_ID*PnP.Suffix@U} D: {Object.Sanct_Date} T: {Object.Sanct_Time} CC: PCP: Ignacio Newberry Referring: Ignacio Newberry This document was completed utilizing speech recognition software. Grammatical errors, random word insertions, pronoun errors, and incomplete sentences are an occasional consequence of this system due to software limitations, ambient noise, and hardware issues. Any formal questions or concerns about the content, text or information contained within the body of this dictation should be directly addressed to the provider for clarification.
== END 2025-05-26 23:59 | disposition home or self-care (01) ==
LOC: SCTC 14:43
PROVIDERS: PCP Physician Assistant; Referring Provider Internal Medicine Hematology & Oncology; Visit Provider Internal Medicine Hematology & Oncology
DX: C64.1 Malignant neoplasm of right kidney, except renal pelvis (principal); I10 Essential (primary) hypertension; Z90.5 Acquired absence of kidney; E66.9 Obesity, unspecified
CPT/HCPCS: 99212; G0463

== ENCOUNTER 2025-06-14 13:42 | Outpatient (AMB) | payer OTHER, SELFPAY ==
[2025-06-14 13:49] VITALS: BP 129/82; PULSE 70; RESP 16; TEMP 36.4; O2SAT 92
--- NOTE | 2025-06-14 13:49 | PD.RESCLINIC ---
Vital Signs 06/14/25 13:49 Height 1.6 m Height Method Stated Weight Measurement Method Wheelchair BP 129/82 Blood Pressure Source Automatic Cuff Blood Pressure Location Left Upper Arm Position Sitting Respiration 16 Pulse 70 Pulse Source Monitor Temp 97.6 F Temp Source Temporal Artery Scan Pulse Oximetry (%) 92 L Oxygen Delivery Method Room Air Allergies/Meds Allergies & Medications Allergies Penicillins Allergy (Severe, Verified 06/14/25 13:50) RASH cat dander Allergy (Verified 06/14/25 13:50) dog dander Allergy (Verified 06/14/25 13:50) pollen extracts Allergy (Verified 06/14/25 13:50) Medication Reconciliation albuterol sulfate 2.5 mg/3 mL (0.083 %) solution for nebulization 2.5 mg inhalation Q4H PRN Cough 09/04/22 [History Confirmed 06/14/25] diltiazem HCl 60 mg capsule,extended release 12 hr 60 mg PO BID 09/04/22 [History Confirmed 06/14/25] metformin 850 mg tablet 850 mg PO BID 09/04/22 [History Confirmed 06/14/25] montelukast 10 mg tablet 10 mg PO QDAY 09/04/22 [History Confirmed 06/14/25] budesonide 0.5 mg/2 mL suspension for nebulization 0.25 mg inhalation BID 09/19/22 [History Confirmed 06/14/25] krill oil 500 mg capsule 350 mg PO QDAY 09/19/22 [History Confirmed 06/14/25] diphenhydramine HCl 25 mg capsule (Benadryl) 25 mg PO Q8H PRN allergic symptoms #30 caps 12/15/22 [Rx Confirmed 06/14/25] linaclotide 290 mcg capsule (Linzess) 290 mcg PO DAILY 01/11/24 [History Confirmed 06/14/25] dicyclomine 20 mg tablet 20 mg PO QID PRN abdominal pain #14 tabs 02/14/25 [Rx Confirmed 06/14/25] atorvastatin 20 mg tablet 20 mg PO QHS 03/20/25 [History Confirmed 06/14/25] benzonatate 100 mg capsule 100 mg PO TID PRN cough 1 month #90 caps 03/20/25 [Rx Confirmed 06/14/25] blood pressure kit-extra large #1 ea 03/20/25 [Rx Confirmed 06/14/25] dapagliflozin propanediol 10 mg tablet (Farxiga) 10 mg PO QDAY 03/20/25 [History Confirmed 06/14/25] omeprazole 20 mg capsule,delayed release 20 mg PO QDAY 03/20/25 [History Confirmed 06/14/25] omeprazole magnesium 20 mg tablet,delayed release (Prilosec OTC) 20 mg PO QDAY 1 month #30 tabs 03/20/25 [Rx Confirmed 06/14/25] tirzepatide 2.5 mg/0.5 mL subcutaneous pen injector (Mounjaro) 7.5 mg subcut QWEEK 03/20/25 [History Confirmed 06/14/25] tirzepatide 7.5 mg/0.5 mL subcutaneous pen injector (Mounjaro) 7.5 mg (0.5 mL) subcut QWEEK 1 month #2 mL 03/20/25 [Rx Confirmed 06/14/25] bumetanide 2 mg tablet 2 mg PO QDAY 06/14/25 [History Confirmed 06/14/25] gabapentin 100 mg capsule 100 mg PO BID 1 month #60 caps 06/14/25 [Rx] MA Intake Visit Data Collection Pain Present Currently: No Pain scale:: 0 PCP or OBGYN visit in last 3 months: Yes Smoking Status Smoking Status: Never smoker Immunization / Flu Flu Vaccine in the Last 12 Months: No Flu Vaccine Exclusion Criteria: Refused by Patient Past Medical History Past Medical History NEUROLOGIC: Negative Neurological Disorders, Cerebrovascular Accident, Transient Ischemic Attacks (TIA), Dementia, Alzheimer's Disease, Parkinson's Disease, Brain Tumor, Meningitis, Seizures, Epilepsy, Multiple Sclerosis, Cerebral Palsy, Amyotrophic Lateral Sclerosis (ALS/Kinsey Gehrig's), Guillain-Austin Syndrome, Spina Bifida, Paralysis, Peripheral Neuropathy, Pope's Palsy, Subdural Hematoma, Migraine, Head Trauma, Spinal Cord Injury or Traumatic Brain Injury CARDIAC: Positive Cardiac Disorders, Hypertension and Varicose Veins; Negative Myocardial Infarction, Cardiac Arrhythmia, Atrial Fibrillation, Angina, Heart Murmur, Coronary Artery Disease, Atherosclerotic Heart Disease, Peripheral Vascular Disease, Hypercholesterolemia, Aneurysm, Congestive Heart Failure, Congenital Heart Disease, Valvular Heart Disease, Rheumatic Fever, Cardiomyopathy, Edema, Pericarditis, Cellulitis, Deep Vein Thrombosis or Hypotension RESPIRATORY: Positive Asthma, Bronchitis and Sleep Apnea; Negative Chronic Obstructive Pulmonary Disease (COPD), Emphysema, Pneumonia, Pulmonary Fibrosis, Cystic Fibrosis, Tuberculosis, Pulmonary Embolism or Pulmonary Edema GASTROINTESTINAL: Positive Gastrointestinal Disorders, Gall Bladder Disease, Diverticulosis, Hemorrhoids and Obesity; Negative Hepatitis, Cirrhosis, Pancreatitis, Celiac Disease, Gastrointestinal Bleed, Esophageal Varices, Stauffer's Esophagus, Colitis, Ulcerative Colitis, Diverticulitis, Ulcer, Colorectal Cancer, Irritable Bowel, Crohn's Disease, Obstructive Bowel, Hiatal Hernia or Gastroesophageal Reflux Disease GENITOURINARY: Negative Genitourinary Disorders, Renal Disease, Kidney Stones, Polycystic Kidney Disease, Neurogenic Bladder, Inguinal Hernia, Dialysis, Prostate Cancer or Benign Prostatic Hyperplasia REPRODUCTIVE: Positive Previous Pregnancies (x5); Negative Breast Cancer, Endometriosis, Genital Herpes, Gonorrhea, Pelvic Inflammatory Disease, Syphilis, Testicular Cancer or Uterine Prolapse MUSCULOSKELETAL: Positive Arthritis; Negative Muscular Dystrophy, Myasthenia Gravis, Marfan's Syndrome, Bone Cancer, Rheumatoid Arthritis, Osteoporosis, Degenerative Disk Disease, Gout, Scoliosis, Carpal Tunnel Syndrome, Fibromyalgia, Fractures, Degenerative Joint Disease, Osteomyelitis or Poliovirus ENT: Positive Cataracts; Negative Glaucoma, Blind, Retinal Detachment, Macular Degeneration, Ear Infection, Deafness, Head Trauma or Eye Prosthesis ENDOCRINE: Positive Endocrine Disorders and Diabetes Mellitus Type 2; Negative Diabetes Mellitus Type 1, Hypoglycemia, Jason's Syndrome, Philadelphia's Disease, Hyperthyroidism, Hypothyroidism, Parathyroid Disease, Pituitary Disease, Systemic Lupus Erythematosus, Syndrome of Inappropriate Antidiuretic Hormone (SIADH), Adrenal Disease or Graves' Disease HEMATOLOGIC: Negative Blood Disorders, Anemia, Leukemia, Hemophilia, Thalassemia, Sickle Cell Disease or Clotting Problems PSYCHO/SOCIAL: Negative Psychiatric Problems, Schizophrenia, Recreational Drug Use, Bipolar Disorder, Depression, Anxiety, Behavior Problems, Self-Mutilation, Attention Deficit Disorder, Attention Deficit Hyperactivity Disorder, Depression, Post Traumatic Stress Disorder or Eating Disorder OTHER HISTORY: Positive Chicken Pox, Measles and Mumps; Negative Hospitalization, Down Syndrome, Autism, Developmental Delay, Shingles, Falls, Blood Transfusions, Blood Transfusion Reaction, Anesthesia Reactions, Organ Transplant, Chemotherapy, Radiation Therapy, Hyperbaric Therapy, MRSA, VRSA, Vancomycin-Resistant Enterococci, Human Immunodeficiency Virus (HIV), Rubella (Yemeni Measles), Pertussis, Clostridium Difficile, Cancer, Breast Cancer, Cervical Cancer, Colorectal Cancer, Lung Cancer, Ovarian Cancer, Prostate Cancer or Testicular Cancer Family History FAMILY HISTORY: Positive Family Cardiac Disorders and Family Surgery; Negative Family Psychiatric Problems, Family Respiratory Disorders, Family Gastrointestinal Problems, Family Cancer or Family Anesthesia Reaction Surgical History SURGICAL: Positive Eye Surgery, Tonsillectomy, Abdominal Surgery, Nephrectomy (right nephrectomy 11/29/2022) and Tubal Ligation; Negative Cardiac Surgery, Open Heart Surgery, Coronary Artery Bypass Graft, Valve Replacement, Vascular Surgery, Coronary Stent, Cardiac Catheterization, Pacemaker, Angiogram, Auto Implanted Cardiovert Defib, Carotid Endarterectomy, Endocrine Surgery, Thyroidectomy, Ear Surgery, Tympanostomy Tube, Nose Surgery, Oral Surgery, Adenoidectomy, Cochlear Implant, Corneal Transplant, Throat Surgery, Tracheostomy, Gastric Bypass Surgery, Gastrostomy, Bowel Surgery, Transurethral Resection, Joint Replacement, Amputation, Open Reduction Internal Fixation, Arthroscopy, Neurologic Surgery, Brain Shunt, Mastectomy, Lumpectomy, Hysterectomy, Section, Vasectomy or Organ Transplant Social History SMOKING STATUS: Smoking status: Never smoker SECOND HAND EXPOSURE: second hand exposure: No ALCOHOL: Alcohol Intake: Never HOUSING: Housing: House Patient Portal Questionaires PHQ-9 PHQ-2 Over the last 2 weeks, how often have you been bothered by any of the following problems? 1. Little interest or pleasure in doing things: not at all PHQ-9 8. Moving or speaking so slowly that other people could have noticed? - Or the opposite - being so fidgety or restless that you have been moving around a lot more than usual: not at all Source: Developed by Drs. Сергей Fishman, Dulce Guillen, Lam Moyer and colleagues, with an educational sanjuanita from [employer]. Social History Living Situation History Lives With: Family Housing: House Tobacco History Smoking Status: Never smoker Second Hand Smoke Exposure: No Alcohol History Alcohol Intake: Never Review of Systems Report any current symptoms Only answer those that you have currently: Past Medical History Past Medical History Have you ever been diagnosed with any of the following: Neurological Problems Cerebrovascular Accident (CVA): No Transient Ischemic Attacks (TIA): No Dementia: No Alzheimer's Disease: No Parkinson's Disease: No Brain Tumor: No Meningitis: No Seizures: No Epilepsy: No Multiple Sclerosis: No Cerebral Palsy: No Amyotrophic Lateral Sclerosis (ALS/Kinsey Gehrig's): No Guillain-Austin Syndrome: No Spina Bifida: No Paralysis: No Peripheral Neuropathy: No Pope's Palsy: No Subdural Hematoma: No Migraine: No Head Trauma: No Spinal Cord Injury: No Traumatic Brain Injury: No Cardiology Problems Myocardial Infarction: No Cardiac Arrhythmia: No Atrial Fibrillation: No Angina: No Heart Murmur: No Coronary Artery Disease: No Atherosclerotic Heart Disease: No Peripheral Vascular Disease: No Hypercholesterolemia: No Aneurysm: No Congestive Heart Failure: No Congenital Heart Disease: No Valvular Heart Disease: No Rheumatic Fever: No Cardiomyopathy: No Edema: No Pericarditis: No Cellulitis: No Deep Vein Thrombosis: No Hypertension: Yes Hypotension: No Varicose Veins: Yes Respiratory Problems Chronic Obstructive Pulmonary Disease (COPD): No Asthma: Yes Bronchitis: Yes Emphysema: No Pneumonia: No Pulmonary Fibrosis: No Tuberculosis: No Pulmonary Embolism: No Pulmonary Edema: No Sleep Apnea: Yes Stomache/Intestinal Problems Hepatitis: No Cirrhosis: No Pancreatitis: No Celiac Disease: No Gall Bladder Disease: Yes Gastrointestinal Bleed: No Esophageal Varices: No Stauffer's Esophagus: No Colitis: No Ulcerative Colitis: No Diverticulitis: No Diverticulosis: Yes Ulcer: No Colorectal Cancer: No Irritable Bowel: No Crohn's Disease: No Obstructive Bowel: No Hiatal Hernia: No Hemorrhoids: Yes Gastroesophageal Reflux Disease: No Obesity: Yes Genital/Urinary Problems Renal Disease: No Kidney Stones: No Polycystic Kidney Disease: No Neurogenic Bladder: No Inguinal Hernia: No Dialysis: No Reproductive Problems Breast Cancer: No Endometriosis: No Genital Herpes: No Gonorrhea: No Pelvic Inflammatory Disease: No Previous Pregnancies: Yes (x5) Syphilis: No Uterine Prolapse: No Musculoskeletal Problems Muscular Dystrophy: No Myasthenia Gravis: No Marfan's Syndrome: No Bone Cancer: No Arthritis: Yes Rheumatoid Arthritis: No Osteoporosis: No Degenerative Disk Disease: No Gout: No Scoliosis: No Carpal Tunnel Syndrome: No Fibromyalgia: No Fractures: No Degenerative Joint Disease: No Osteomyelitis: No Poliovirus: No Head,Eye,Nose,Throat Problems Cataracts: Yes Glaucoma: No Blind: No Retinal Detachment: No Macular Degeneration: No Chronic Ear Infections: No Deafness: No Eye Prosthesis: No Endocrine Problems Diabetes Mellitus Type 1: No Diabetes Mellitus Type 2: Yes Hypoglycemia: No Jason's Syndrome: No Philadelphia's Disease: No Hyperthyroidism: No Hypothyroidism: No Parathyroid Disease: No Pituitary Disease: No Systemic Lupus Erythematosus: No Syndrome of Inappropriate Antidiuretic Hormone: No Adrenal Disease: No Graves' Disease: No Blood Problems Anemia: No Leukemia: No Hemophilia: No Thalassemia: No Sickle Cell Disease: No Clotting Problems: No Psychologic Problems Schizophrenia: No Recreational Drug Use: No Bipolar Disorder: No Depression: No Anxiety: No Behavior Problems: No Self-Mutilation: No Attention Deficit Disorder: No Attention Deficit Hyperactivity Disorder: No Depression: No Post Traumatic Stress Disorder: No Eating Disorder: No Other Problems Hospitalization: No Down Syndrome: No Autism: No Developmental Delay: No Shingles: No Falls: No Blood Transfusions: No Blood Transfusion Reaction: No Anesthesia Reactions: No Organ Transplant: No Chemotherapy: No Radiation Therapy: No Hyperbaric Therapy: No MRSA: No VRSA: No Vancomycin-Resistant Enterococci: No Human Immunodeficiency Virus (HIV): No Chicken Pox: Yes Measles: Yes Mumps: Yes Rubella (Y[place]i Measles): No Pertussis: No Clostridium Difficile: No Cancer: No Cervical Cancer: No Lung Cancer: No Ovarian Cancer: No Surgical History Carotid Endarterectomy: No Coronary Artery Bypass Graft: No Valve Replacement: No Hysterectomy: No Pacemaker: No Thyroidectomy: No History of Present Illness HPI Narrative Patient is a 74 year old female with past medical history of clear cell renal carcinoma s/p right nephrectomy, hypertension, diabetes, asthma, and morbid obesity who presents to clinic today for blood pressure control. Currently on furosemide 20 mg every other day, losartan 25 mg daily, diltiazem 60 mg ER BID (prescribed by previous FITTING ROOM ATTENDANT), and Farxiga 10 mg daily. BP in office 111/74 today. Oxygen saturation 83% on intake, repeat 92-93% on RA on exam. Hx of asthma, uses Trelegy, uses 2L oxygen nightly, does not need during the day. Reports daytime tiredness however does not want to be referred for sleep study at this time. Reports unable to sleep at night, educated on proper sleep hygiene and encouraged to try melatonin OTC. Patient is currently on Monjaro 5mg, started 1 month ago. Has not lost any weight. Encouraged exercise as tolerated. Patient has trouble walking due to right side sciatica versus meralgia parasthesia, started on gabapentin 100 mg BID. Uses walker but requested wheelchair for gait dysfunction secondary to pain. Will increase Mounjaro from 5 to 7.5mg per patient request. Denies nausea, vomiting, and constipation (Linzess daily). Denies history of tobacco, alcohol, and drug use. 06/14/2025. Patient is here to follow-up. Vitals were reviewed. Patient currently stable. Sons were present. Upon physical examination JVD was noted. Patient recently followed Dr. Turner with complaints of severe lower extremity edema, Lasix was stopped, patient started on Bumex 2 mg daily. Stated that tolerated medication well. Continue the losartan. However given the history of longstanding hypertension, DM, CKD, obesity, female, and last echo was done in [address] Ardon, patient strongly recommended to follow-up with Dr. Ardon and repeat the echo results. Patient might be having a diastolic heart dysfunction and will need probably to be on goal-directed medical therapy. 2 sons were present at the office. Everything was explained in a detail. Patient will need to follow-up for sleep study to determine if patient needs any CPAP. However patient denies any symptoms of PND. On oxygen only at night, however stated that not often using it. Patient is on Cardizem prescribed by FITTING ROOM ATTENDANT. Do not strongly believe that she needs it, and is not sure if patient has any underlying history of A-fib. For that reason patient was referred to cardiology for further testing including echo and Holter monitoring. Patient will be seen in office on next visit. Also we will order some lab work including lipid panel, TSH, BNP, CMP. Review of Systems Review of Systems Systems Reviewed: All systems reviewed, normal except as documented Objective/Exam Narrative Physical exam: Physical Exam General: Elderly, morbidly obese female, pleasant. Wheelchair bound. Awake and in no acute distress. Conversational and non-toxic appearing. HEENT: Normocephalic, atraumatic, mucous membranes moist. Heart: Regular rate and rhythm, normal S1 and S2, no murmurs. Lungs: Clear to auscultation with no wheezing or crackles. Abdomen: Soft, nondistended, nontender, positive bowel sounds. No guarding or rebound tenderness. Neurologic: Alert and oriented x3, no gross neurological deficit, and patient able to move all 4 extremities. Negative Slump test. Extremities: No lower extremity edema bilaterally. Skin: No rash or ecchymoses. Assessment & Plan Diagnosis / Problem List (1) Hypertension: Status: Acute Qualifiers: Hypertension type: primary hypertension Qualified Code(s): I10 - Essential (primary) hypertension Assessment & Plan: Reason for referral from oncologist Dr. Newberry. Previously managed by FITTING ROOM ATTENDANT Madhusalia, was prescribed diltiazem 60 mg ER BID. Denies history of arrhythmias or cardiac disease. Per patient, also taking Losartan 25 mg daily, furosemide 20 mg every other day, and Farxiga 10mg daily. Discontinued from Kerendia. BP in office today 111/74. Denies UTI symptoms, no lower extremity edema on exam. Of note, patient has history of clear renal cell carcinoma s/p right nephrectomy, possibly exacerbated by history of CKD stage 3a, follows oncologist Dr. Newberry and internal investigator Dr. Turner. Has appointment with Dr. Newberry 03/[address] Turner 05/2025. Plan: - Continue Losartan, Bumex 2 mg daily. every other day, and diltiazem as above - Follow up BNP - Ordered BP cuff, instructed patient to measure and log BP every morning - Instructed patient to bring medications to next appointment (2) Non-insulin dependent diabetes mellitus: Status: Acute Assessment & Plan: Currently on Mounjaro 5mg qweek, prescribed by Dr. Turner. First A1c on record 6.0 on 08/20/23, latest 5.6 on 01/31/25. Reports no weight loss. Will increase dosage. Per review of records, patient was previously on metformin, did not mention today as current medication. Plan: - Increase Mounjaro from 5 to 7.5 mg qweek - Instructed patient to bring medications to next visit (3) Leg paresthesia: Status: Acute Assessment & Plan: Complaining of sharp intermittent right lateral thigh pain, occasionally radiating to right hip. Denies pain in hamstrings. Negative Slump test on exam. Impedes patient's ability to walk, currently using walker but unable to ambulate far due to pain. Has handicap placard. Takes extra strength Tylenol for arthritis. Previously taken meloxicam, was discontinued. Plan: - Prescribed gabapentin 100 mg BID for pain - Recommend taking extra strength Tylenol prior to ambulation/activity - Ordered wheelchair per patient request (4) Neurologic gait dysfunction: Status: Acute Assessment & Plan: Pain impeding ambulation as above. Plan: - DME wheelchair request as above (5) GERD (gastroesophageal reflux disease): Status: Acute Qualifiers: Esophagitis presence: without esophagitis Qualified Code(s): K21.9 - Gastro-esophageal reflux disease without esophagitis Assessment & Plan: History of GERD per patient, likely secondary to morbid obesity and poor eating habits. Plan: - Continue omeprazole 20 mg daily - Educated on proper meal time and post dinner habits (6) Hyperlipidemia: Status: Acute Qualifiers: Hyperlipidemia type: unspecified Qualified Code(s): E78.5 - Hyperlipidemia, unspecified Assessment & Plan: Lipid panel 01/31/25: total cholesterol 119, TG 113, HDL 43, LDL 55, VLDL 21. Plan: - Continue atorvastatin 20 mg QHS - Follow up lipid panel annually Additional Assessment #Hx clear renal cell carcinoma s/p right nephrectomy - following oncologist Dr. Newberry. On Asparlos per last note 03/06/25. Note stable 14mm adrenal nodule since 03/2024 on MRI. Marianela genetic test negative. #CKD stage 3a - As above. Cr 1.08 and eGFR 54 on 01/31/25, at baseline. Urine albumin/Cr ratio 12. UA shows 2+ glucose but otherwise unremarkable. Following Dr. Turner, on . #Secondary hyperparathyroidism - likely secondary to above. PTH 66, calcium 10.0. Continue to monitor. #Mild anemia, normocytic - Hgb 10.3, MCV 82 on 01/31/25. Likely secondary to CKD. Patient no longer taking iron. Consider iron panel if continues to drop. Advanced Care Planning Advance care planning discussed with:: patient Office Procedures [facility] Level of Care Nursing/Assessment Patient Status: Established Patient Nursing Assessment/Reassessment: Medication Reconciliation, Update PMH in EMR and Vital Signs Coordination of Care: Complex Care and Chronic Disease 1-5, Complex Care/Chronic Disease 5 or more, Education Complex Pt/Fam, Ref for ancillary service and Staff clarify orders Established Patient Charge Established Patient Point Assignment: 140 Established Patient Point Charge: EP Level 4 (120-155)
== END 2025-06-14 15:00 | disposition home or self-care (01) ==
PROVIDERS: Supervising Provider Internal Medicine; Visit Provider Student in an Organized Health Care Education/Training Program
DX: I12.9 Hypertensive chronic kidney disease with stage 1 through stage 4 chronic kidney disease, or unspecified chronic kidney disease (principal); E11.22 Type 2 diabetes mellitus with diabetic chronic kidney disease; N18.31 Chronic kidney disease, stage 3a; Z79.85 Long-term (current) use of injectable non-insulin antidiabetic drugs; R20.2 Paresthesia of skin; K21.9 Gastro-esophageal reflux disease without esophagitis; E78.5 Hyperlipidemia, unspecified; D64.9 Anemia, unspecified; E21.1 Secondary hyperparathyroidism, not elsewhere classified; Z85.528 Personal history of other malignant neoplasm of kidney; R26.2 Difficulty in walking, not elsewhere classified; Z90.5 Acquired absence of kidney; E27.8 Other specified disorders of adrenal gland; E66.01 Morbid (severe) obesity due to excess calories
CPT/HCPCS: 99214; G0463